=== PATIENT | male | born 1950 | race Caucasian/White ===

== ENCOUNTER → 2017-06-23 | Outpatient (CLI) | payer OTHER, BC ==
[~2017-06-23] MED LIST: AMLO-110 PO; CARB200T PO; CYAN500T13 PO; FAMOTIDINE PO; FERR1TAB23 PO; LOSARTAN PO; VITAMIN D3 PO
[2017-06-23 15:42] LABS: BASO ABS # 0.06 K/uL (0-0.2); EOS % 3.3 %; HEMATOCRIT 41.7 % (42-52); HEMOGLOBIN 14.3 g/dL (14.0-18.0); IG# 0.03 K/uL (0.00-0.02); LYMPH % 28.7 %; LYMPH ABS # 1.74 K/uL (1.2-3.4); MEAN CELL VOLUME 90.5 fL (80-100); MEAN CORPUSCULAR HGB CONC 34.3 g/dl (32-36); MEAN PLATELET VOLUME 9.6 fL (7.4-10.4); MONO % 15.2 %; MONO ABS # 0.92 K/uL (0.11-0.59); NEUT % 51.3 %; NEUT ABS # 3.12 K/uL (1.4-6.5); PLATELET COUNT 232 K/uL (130-400); RED CELL DISTRIBUTION WIDTH SD 46.3 fL (36.4-46.3); WHITE BLOOD COUNT 6.07 K/uL (4.8-10.8)
--- NOTE | 2017-06-23 15:47 | DIAGNOSTIC IMAGING REPORT ---
CHEST 2 VIEWS ROUTINE CLINICAL HISTORY: PRE-OP TESTING COMPARISON STUDY: No previous studies for comparison. FINDINGS: The cardiac and mediastinal contours are normal. There is no evidence of focal pulmonary consolidation. There is no evidence of failure. No pleural effusions are visualized.[ IMPRESSION: No active disease in the chest. Electronically signed by: Augustus Espinosa M.D. 06/23/2017 3:45 PM Dictated Date/Time: 06/23/2017 3:45 PM
[2017-06-23 16:11] LABS: PTT PATIENT 28.7 SECONDS (21.0-31.0)
[2017-06-23 16:25] LABS: ALBUMIN 3.7 gm/dl (3.4-5.0); BLOOD UREA NITROGEN 17 mg/dl (7-18); CALCIUM 8.7 mg/dl (8.5-10.1); CARBON DIOXIDE 26 mmol/L (21-32); CREATININE 1.68 mg/dl (0.60-1.40); GLUCOSE 95 mg/dl (70-99); POTASSIUM 4.1 mmol/L (3.5-5.1); SODIUM 138 mmol/L (136-145)
[2017-06-24 06:49] LABS: HEMOGLOBIN A1C 6.1 % (4.5-5.6)
== END | disposition home or self-care (01) ==
LOC: C.RAD 14:54
PROVIDERS: ATTEND Orthopaedic Surgery Sports Medicine
DX: Z01.811 Encounter for preprocedural respiratory examination (principal); Z01.812 Encounter for preprocedural laboratory examination

== ENCOUNTER 2017-06-30 06:49 | Inpatient (IN) | payer OTHER, BC ==
[2017-06-25 11:03] VITALS: BMI 41.0
--- NOTE | 2017-06-29 14:55 | HISTORY & PHYSICAL EXAMINATION ---
DATE OF ADMISSION: 06/30/2017 CHIEF COMPLAINT: Chronic left knee pain. HISTORY OF PRESENT ILLNESS: This is a 66-year-old male patient of Dr. March'viridiana complaining of chronic left knee pain, longstanding, now progressively getting worse. The patient has been diagnosed with end-stage osteoarthritis. The patient has failed conservative treatment including anti-inflammatories and the use of a sleeve. The patient has increased pain with weightbearing activities and his pain does interfere with his activities of daily living. PAST MEDICAL HISTORY: Sleep apnea with the use of CPAP, diabetes mellitus, rheumatoid arthritis, osteoarthritis, acid reflux, obesity, skin cancer, melanoma. SOCIAL HISTORY: Nonsmoker, nondrinker. PAST SURGICAL HISTORY: Both shoulder surgeries, gallbladder, gastric bypass, ankle-heel spurs, both knees and right index finger. FAMILY HISTORY: Noncontributory. REVIEW OF SYSTEMS: The patient complains of chronic left knee pain, otherwise denies any shortness of breath, chest pain, nausea, vomiting or other joint complaints. MEDICATIONS: Amlodipine 5 mg daily, carbamazepine 200 mg b.i.d., vitamin B12 500 mcg daily, iron 325 mg daily, liquid vitamin D3 5 mL per day, losartan unknown strength daily. ALLERGIES: No known drug allergies. PHYSICAL EXAMINATION: GENERAL: Well-developed, well-nourished 66-year-old male in no acute distress. He is alert and oriented x3 and pleasant. HEENT: Normocephalic, atraumatic. Extraocular motions were intact. Pupils were equal, reactive to light. HEART: Regular rate and rhythm, no murmurs appreciated. LUNGS: Clear. ABDOMEN: Soft and nontender. Bowel sounds present. EXTREMITIES: Left knee reveals range of motion of negative 5-135 and obesity. He has a varus alignment with 5/5 strength. NEUROLOGIC: Neurovascularly, he is intact in his left lower extremity. DIAGNOSES: Left knee end-stage osteoarthritis, sleep apnea with the use of CPAP, diabetes mellitus, osteoarthritis, rheumatoid arthritis, acid reflux, obesity, history of melanoma cancer. PLAN: The patient was advised of his diagnosis. Indications, risks, benefits, pros of course have all been reviewed. The patient was to proceed with a left total knee arthroplasty. Necessary consent forms, preoperative testing and clearances will be obtained.
[2017-06-30] VITALS (8 sets, daily range): BP systolic 107–145; BP diastolic 67–81; PULSE 51–91; TEMP 36.3–36.8; O2SAT 93–98; Ht 188 cm; Wt 145.4 kg
[~2017-06-30] VITALS: Ht 188 cm; Wt 145.4 kg
[~2017-06-30 06:49] MED LIST changes: +ACETAMINOPHEN 500 MG TAB PO SCH; +BUPIVACAINE 0.5 % 5 MG/1 ML PF 10ML VIAL ONE; +CEFAZOLIN 3000MG IV PUSH 22.5 ML IV SCH; +DEXAMETHASONE 4 MG TAB PO SCH; +FAMOTIDINE 20 MG TAB PO SCH; +GABAPENTIN 300 MG CAP PO SCH; +LACTATED RINGER'S 1000ML 1,000 ML IV SCH; +LACTATED RINGER'S 1000ML 500 ML IV SCH; +METOCLOPRAMIDE HCL 10 MG TAB PO SCH; +ROPIVACAINE 0.5% 5 MG/ML 30 ML VIAL ONE; +ROPIVACAINE 5MG/ML 30 ML 150 MG, BUPIVACAINE 0.5% MPF INJ 30 ML, EpINEphrine HCL INJ 0.... INFIL SCH
[2017-06-30] MEDS ORDERED: MIDAZOLAM HCL 1 MG/ML 2ML VIAL ONE ×4 (08:11→10:09)
[2017-06-30] MEDS ORDERED: FENTANYL CITRATE INJ 50 MCG/1 ML 2 ML VIAL ONE (08:11)
--- NOTE | 2017-06-30 09:20 | Anesthesiology Progress Note ---
Anesthesia Post Op Note Date & Time June 30, 2017 at 09:17 Vital Signs Pain Intensity: 0 Vital Signs Past 12 Hours Date Time Temp Pulse Resp B/P (MAP) Pulse Ox O2 Delivery O2 Flow Rate FiO2 06/30/17 07:15 36.8 62 20 145/76 98 Room Air
--- NOTE | 2017-06-30 09:55 | History & Physical Bridge Note ---
H&P Re-Evaluation Bridge Note: I have examined the patient, reviewed the History & Physical and in the interval since the performance of the History & Physical I have noted the following changes of clinical significance: No changes noted
[2017-06-30] MEDS: TRANEXAMIC ACID INJ 1,000 MG x 2 Bags IV SCH ×4 (10:05→14:33)
[2017-06-30] MEDS ORDERED: ORTHO JOINT ANESTHETIC ONE (10:15)
[2017-06-30] MEDS ORDERED: BACITRACIN 50000 UNIT VIAL ONE (10:15)
[2017-06-30] MEDS ORDERED: POVIDONE-IODINE OP SOLN 30 ML BTL ONE (10:15)
[2017-06-30] MEDS ORDERED: PROPOFOL IV EMULSION 10 MG/ML 20 ML VIAL ONE (11:37)
--- NOTE | 2017-06-30 12:50 | [facility] Post Operative Brief Note ---
Immediate Operative Summary Operative Date June 30, 2017. Pre-Operative Diagnosis Left knee end-stage osteoarthritis Post-Operative Diagnosis Left knee end-stage osteoarthritis Procedure(s) Performed Left Total Knee Arthroplasty Surgeon Dr. Cash March Unit Aide Tech Surgeon(s) Edward Dick PA-C Estimated Blood Loss 5 ml Findings Consistent with Post-Op Diagnosis Specimens a. left knee bone and tissue Drains 2 hemovac Anesthesia Type MAC Spinal Regional Complication(s) none
[2017-06-30] MEDS ORDERED: ZOLPIDEM TARTRATE 5 MG TAB PO PRN (13:00)
[2017-06-30] MEDS ORDERED: TRAMADOL HCL 50 MG TAB PO PRN (13:00)
[2017-06-30] MEDS ORDERED: CEFAZOLIN IV 3,000 MG in DEXTROSE 5% 50ML 50 ML IV SCH (13:00)
[2017-06-30] MEDS ORDERED: SOD PHOSPHATE/SOD BIPHOSPHATE ENEMA 132 ML BTL PR PRN (13:00)
[2017-06-30] MEDS ORDERED: MoRPHine SULFATE 4 MG/ML 1 ML CARP\\VIAL IV PRN (13:00)
[2017-06-30] MEDS ORDERED: METOCLOPRAMIDE HCL INJ 5 MG/ML 2 ML VIAL IV PRN (13:00)
[2017-06-30] MEDS ORDERED: MAGNESIUM HYDROXIDE SUSP 30 ML UDC PO PRN (13:00)
[2017-06-30] MEDS ORDERED: ONDANSETRON INJ 2 MG/ML 2 ML VIAL IV PRN (13:00)
--- NOTE | 2017-06-30 13:12 | [facility] Operative Report ---
Operative Report Operative Date June 30, 2017. Pre-Operative Diagnosis Left knee end-stage osteoarthritis Post-Operative Diagnosis Same, obesity 41.2 Procedure(s) Performed Left total knee replacement, increased difficulty due to size and weight BMI 41.[address] Cash March Monotypist Surgeon(s) Edward Dick PA-C Estimated Blood Loss 5 ml Findings Grade 4 medial compartment and patellofemoral DJD varus knee Specimens a. left knee bone and tissue Drains 2 hemovac Anesthesia Spinal sedation regional block and orthomix Complication(s) None Disposition Recovery Room / PACU Indications 66-year-old male with chronic bilateral knee osteoarthritis has extensive conservative management now failed conservative management. Radiographs demonstrate bilateral varus knees [id number] medial compartment with patellofemoral DJD left knee worse than right. Patient also has obesity BMI 41.2. Description of Procedure Patient taken to the operating room the size under spinal with sedation anesthesia. Patient was placed supine on the operating table. A pneumatic tourniquet was placed about the left upper thigh. The left lower extremity was prepped and draped in sterile fashion. Knee exam demonstrated he had an obese upper thigh moderately obese leg around the knee he had chronic lymphedema and scarred skin in the pretibial area consistent with chronic venous stasis disease. The leg was elevated exsanguinated with an Esmarch bandage and pneumatic tourniquet was raised to 350 millimeters of mercury. Skin incised sharply in longitudinal fashion. Subcutaneous flaps elevated. Incision was made through the medial retinaculum extending up in the mid third of the quadriceps tendon and down to the medial tibial tubercle. Intra-articular findings demonstrated tricompartmental DJD grade 4 patellofemoral and medial compartment DJD with tricompartmental osteophytes with a varus knee. The [employer] triathlon total knee arthroplasty system was used. To expose the knee the infrapatellar fat pad was resected. The meniscal remnants and cruciate ligaments were resected. The anterior fat pad over the femur in the area of the anterior flange of the femoral component was resected. Lateral synovial bands release. The femur was exposed. An intramedullary drill hole was made into the canal. A guidewire was placed. Distal femoral cutting guide was adjusted to resect a 5 degree valgus cut with 10 millimeters distal femur resected. The knee was extended and a subperiosteal peel lateral release was performed around the patella. Patella width was measured and width was reproduced using a freehand cut technique and a 36 patella component. The 3 drill holes were made and the excess lateral facet was beveled off to prevent any impingement. Attention was taken back to the femur which was exposed with retractors and the femoral sizing guide was pinned in position. The drill holes were placed in 3 of external rotation to match epicondylar axis. Femur sized for a 7 component. The 4-in-1 cutting block was placed and then the anterior posterior and chamfer cuts are made. The tibia was then subluxed. The external tibial cutting guide was just to make a perpendicular cut to the long axis of the tibia below the most deficient bone loss side. A [employer] merchand[employer] execution manager was used and the flexion extension gaps were balanced. All posterior osteophytes removed. All meniscal remnants were resected. The tibia exposed and the trial tibial component size 6 was externally rotated in line with the tibial tubercle and pinned in position. The punch for stem was used. The notch cutting device was centered appropriately and the femoral notch cut was made. The femoral trial was inserted. Trial tibial inserts were placed and size 11 gave balanced ligaments through flexion and extension. Patella tracking was assessed. The patella tracked centrally. The trial components were then removed and the orthomix anesthetic cocktail was injected per protocol. The knee was then copiously irrigated with pulsatile lavage antibiotic solution. Final components were then cemented with Simplex cement. Final components were 36 x 10 mm dome patella, 6 primary tibial baseplate, size 7 posterior stabilized left femoral component [employer]. While the cement cured the Betadine soak was used per protocol. After cement cured further pulsatile lavage irrigation performed and 2 Hemovac drains were brought out laterally. The quadriceps tendon and medial retinaculum were closed with figure of 8 #1 Vicryl sutures. The knee was taken through full range of motion and the repair was secure. The subcutaneous tisssues were closed with 2-0 Vicryl sutures. Skin was closed with nelida. Sterile dressings were applied. Patient procedure well. Edward MONACO was my physician instruction assistant principal who assisted in patient positioning prepping and draping,leg positioning ,soft tissue retraction and intrument management and participated in the closing and will participate in postoperative careof the patient. The patient tolerated the procedure well. I attest to the content of the Intraoperative Record and any orders documented therein. Any exceptions are noted below.
--- NOTE | 2017-06-30 13:47 | DIAGNOSTIC IMAGING REPORT ---
L KNEE 1 OR 2 VIEWS ROUTINE CLINICAL HISTORY: Left knee degenerative joint disease. Arthroplasty. COMPARISON: None FINDINGS: Alignment of the total left knee arthroplasty is anatomic. There is no fracture or unexpected radiopaque foreign body. Drains and skin nelida are present. IMPRESSION: Expected findings following total left knee arthroplasty. Electronically signed by: Doc Camp M.D. 06/30/2017 1:46 PM Dictated Date/Time: 06/30/2017 1:45 PM
[2017-06-30] MEDS: ACETAMINOPHEN 500 MG TAB PO SCH ×2 (15:25→21:52)
[2017-06-30] MEDS: D5W AND 1/2NSS + 20MEQ KCL 1,000 ML IV SCH (15:25)
--- NOTE | 2017-06-30 16:50 | INTERNAL MEDICINE CONSULTATION ---
DATE OF ADMISSION: 06/30/2017 This is a consultation H&P, 25 minutes. Physician requesting for the consultation is Dr. March. REASON FOR CONSULTATION: Postop medical management. HISTORY OF PRESENT ILLNESS: The patient is a 66-year-old white male with a significant past medical history of hypertension, diabetes, sleep apnea, on CPAP machine, rheumatoid arthritis, osteoarthritis, GERD, obesity, skin cancer, melanoma, was admitted to Dr. March's service because of chronic left knee pain. Left knee pain was longstanding, is progressively getting worse, which was end- stage osteoarthritis. He failed conservative outpatient treatment. The patient had left total knee done today. He is doing well. When I interviewed with him, he was awake, alert, and oriented, without any pain. Denied fever or chills. Denied chest pain, palpitation, lower extremity swelling. Denied cough, sputum, shortness of breath, or wheezing. Denied nausea, vomiting, abdominal pain, diarrhea, or constipation. Denied dysuria, urgency, or frequency. Denied facial droop, slurry speeches, or local weakness. Denied skin rashes. PAST MEDICAL HISTORY: Like I mentioned above includes obstructive sleep apnea, on CPAP machine, diabetes, rheumatoid arthritis, osteoarthritis, acid reflux, obesity, skin cancer, and melanoma. PAST SURGICAL HISTORY: Includes bilateral shoulder, gallbladder, gastric bypass, both knees, and right index finger. SOCIAL HISTORY: Denied tobacco abuse disorder, denied alcohol abuse disorder, denied illicit drug abuse. FAMILY HISTORY: Not contributory. REVIEW OF SYSTEMS: Please see HPI, otherwise 14 points organ system review negative. MEDICATIONS: Current medications include amlodipine 5 mg p.o. daily, carbamazepine 200 mg p.o. b.i.d., vitamin B12 of 500 mcg p.o. daily, iron pills 325 mg p.o. daily, vitamin D3 of 5 mL per day, losartan 5 mg p.o. daily. ALLERGIES: No known drug allergies. PHYSICAL EXAMINATION: VITAL SIGNS: Temperature 36.8, pulse 62, respiration rate 20, blood pressure 145/76, pulse oximetry was 96% on room air. GENERAL: The patient is a white male, awake, alert, oriented, conversational, follows all commands, in no acute distress. HEENT: Head is normocephalic. Eyes: Pupils equal, round, responsive to light. Ears are normal. Nose is normal. NECK: Supple. Thyroid: No enlargement. Trachea midline. CARDIOVASCULAR: Heart has regular rhythm. S1 and S2. RESPIRATORY: Lungs with decreased breathing sounds. There was no wheezing, rhonchi, or crackles. GASTROINTESTINAL: Abdomen is soft and nontender. Bowel sounds positive GENITOURINARY/RECTAL: Deferred. NEUROLOGIC: Cranial nerves II through XII are intact. There are no focal deficits. SKIN: No rashes. MUSCULOSKELETAL: Left knee in dressing. Limited range of motion. LABORATORY STUDIES: Recent labs include WBC 6, hemoglobin 14, platelets 332. PT/INR were 10 and 1. Sodium 138, potassium 4.1, BUN 17, creatinine 1.68, blood glucose 95. A1c 6.1. ASSESSMENT AND PLAN: A 66-year-old white male with conditions seen below. 1. Left knee osteoarthritis, status post left knee arthroplasty. PT/OT, pain management, DVT prophylaxis. Discharge plan will be per primary team. 2. History of diabetes, which was resolved after gastric bypass surgeries. Recent A1c was 6.1. Would not need to check HbA1c. Would not need to have any insulin coverage for now and advised him to follow up with his PCP. 3. Sleep apnea, on CPAP machine. Would advise family to bring CPAP machine. While he is in the hospital, we will continue CPAP machine when he is in sleep in hospitalization. 4. Hypertension. We will continue his home medications which include amlodipine and losartan. 5. The patient possibly has chronic kidney disease. His recent creatinine was 1.6. Will follow up. Thank you for the chance to be involved in the care. We will follow up. GABRIEL
[2017-06-30] MEDS ORDERED: INSULIN ASPART 100 UNITS/ML 3 ML PEN SC SCH (17:15)
[2017-06-30] MEDS: CEFAZOLIN IV 3,000 MG in SYRINGE 0 ML IV SCH (17:57)
[2017-06-30] MEDS ORDERED: CeleBREX 200 MG CAP PO SCH (21:00)
[2017-06-30] MEDS: FAMOTIDINE 20 MG TAB PO SCH (21:50)
[2017-06-30] MEDS: DOCUSATE SODIUM 100 MG CAP PO SCH (21:51)
[2017-07-01] MEDS: CEFAZOLIN IV 3,000 MG in SYRINGE 0 ML IV SCH (01:16)
[2017-07-01] MEDS: D5W AND 1/2NSS + 20MEQ KCL 1,000 ML IV SCH ×2 (01:16→11:01)
[2017-07-01 03:21] VITALS: BP 105/65; PULSE 54; TEMP 36.4; O2SAT 97
[2017-07-01] MEDS: RIVAROXABAN 10 MG TAB PO SCH (05:30)
[2017-07-01] MEDS: ACETAMINOPHEN 500 MG TAB PO SCH ×3 (05:30→21:33)
[2017-07-01 06:20] LABS: HEMATOCRIT 35.8 % (42-52); HEMOGLOBIN 12.3 g/dL (14.0-18.0); MEAN CELL VOLUME 89.3 fL (80-100); MEAN CORPUSCULAR HEMOGLOBIN 30.7 pg (25-34); MEAN CORPUSCULAR HGB CONC 34.4 g/dl (32-36); PLATELET COUNT 214 K/uL (130-400); RED CELL DISTRIBUTION WIDTH CV 14.1 % (11.5-14.5); RED CELL DISTRIBUTION WIDTH SD 46.1 fL (36.4-46.3); WHITE BLOOD COUNT 12.38 K/uL (4.8-10.8)
[2017-07-01 06:49] LABS: CALCIUM 8.2 mg/dl (8.5-10.1); CREATININE 1.82 mg/dl (0.60-1.40); POTASSIUM 4.2 mmol/L (3.5-5.1)
[2017-07-01 07:52] VITALS: BP 115/80; PULSE 59; TEMP 36.5; O2SAT 98
--- NOTE | 2017-07-01 08:17 | Orthopedic Progress Note ---
Orthopedic Progress Note Date of Service July 01, 2017. Subjective Post OP Day: 1 Reports: feeling well, pain controlled w PO medications, Denies: complaints, chest pain, SOB, nausea / vomiting, light headedness, calf pain Additional Notes: Cr 1.82 Objective calves soft nontender, N/V intact, capillary refill less than 2 sec., dressing C /D/I, A&O x3, toes mobile Date Time Temp Pulse Resp B/P (MAP) Pulse Ox O2 Delivery O2 Flow Rate FiO2 07/01/17 07:52 36.5 59 17 115/80 (92) 98 Room Air 07/01/17 03:21 36.4 54 17 105/65 (78) 97 CPAP 06/30/17 23:15 Room Air 06/30/17 23:10 36.4 54 17 123/69 (87) 96 Room Air 06/30/17 19:20 36.4 51 18 123/67 (85) 95 Room Air 06/30/17 17:00 36.6 66 16 107/70 (82) 93 Room Air 06/30/17 16:00 36.5 80 16 116/78 (91) 95 Room Air 06/30/17 14:55 36.3 91 18 131/81 (98) 96 Room Air 06/30/17 14:30 36.5 80 16 132/79 (96) 96 Room Air 06/30/17 14:00 Room Air 06/30/17 14:00 36.5 80 16 132/79 (96) 96 Room Air 06/30/17 14:00 Room Air 06/30/17 13:53 75 18 06/30/17 13:53 71 18 95 06/30/17 13:51 128/75 06/30/17 13:48 81 15 06/30/17 13:48 82 15 96 06/30/17 13:46 138/70 06/30/17 13:43 85 16 96 06/30/17 13:43 84 16 06/30/17 13:42 79 16 06/30/17 13:42 78 16 95 06/30/17 13:41 127/77 06/30/17 13:37 79 19 95 06/30/17 13:37 76 19 06/30/17 13:36 130/78 06/30/17 13:32 79 22 96 06/30/17 13:32 81 22 5/2/18 13:31 137/80 06/30/17 13:27 81 20 06/30/17 13:27 82 20 96 06/30/17 13:26 134/87 06/30/17 13:26 134/87 06/30/17 13:23 77 22 06/30/17 13:23 77 22 95 06/30/17 13:23 77 22 06/30/17 13:23 77 22 95 06/30/17 13:21 134/80 06/30/17 13:21 134/80 06/30/17 13:18 82 21 97 06/30/17 13:18 36.4 77 18 134/80 (93) 96 Oxymask 10 06/30/17 13:18 79 21 06/30/17 13:18 82 21 97 06/30/17 13:18 79 21 06/30/17 13:16 134/89 06/30/17 13:16 134/89 06/30/17 13:13 81 20 06/30/17 13:13 81 20 06/30/17 13:13 80 20 96 06/30/17 13:13 80 20 96 06/30/17 13:12 79 22 06/30/17 13:12 79 22 96 06/30/17 13:11 146/80 06/30/17 13:07 83 20 06/30/17 13:07 84 20 97 06/30/17 13:06 144/84 06/30/17 13:02 81 23 97 06/30/17 13:02 81 23 06/30/17 13:01 139/83 06/30/17 12:57 78 15 06/30/17 12:57 77 15 97 18 12:56 133/82 06/30/17 12:53 139/87 06/30/17 12:52 36.1 78 12 139/87 (95) 99 Oxymask 10 Laboratory Results 24 Hours: Test 07/01/17 05:58 Hematocrit 35.8 % Hemoglobin 12.3 g/dL Assessment & Plan Assessment: POD #1, Left TKA Plan: PT/ OT DVT proph- Xarelto D/C planning- Home w HH As per medicine Will D/C Celebrex- elevated Cr. Inhouse Planning Pain Management: Ultram, Morphine, PO Tylenol, Oxy IR DVT Prophylaxis: TEDs, SCDs, Xarelto Discharge Planning Discharge Planning: home with home health Pain Management: PO Tylenol, Oxy IR DVT Prophylaxis: Ilda Dardenrelto Therapy: Physical Therapy, Occupational Therapy
[2017-07-01] MEDS: CYANOCOBALAMIN 500 MCG TAB (VIT B-12) PO SCH (08:33)
[2017-07-01] MEDS: MULTIVITAMIN TAB PO SCH (08:33)
[2017-07-01] MEDS: PANTOprazole SOD 40 MG TAB PO SCH (08:33)
[2017-07-01] MEDS: DOCUSATE SODIUM 100 MG CAP PO SCH ×2 (08:33→21:32)
[2017-07-01] MEDS: CHOLECALCIFEROL 1000 INTER.UNIT TAB PO SCH (08:34)
[2017-07-01] MEDS: AMLODIPINE BESYLATE 5 MG TAB PO SCH (08:34)
[2017-07-01] MEDS: FERROUS SULFATE 325 MG TAB PO SCH (08:34)
[2017-07-01] MEDS: CARBAMAZEPINE 200 MG TAB PO SCH (08:34)
[2017-07-01] MEDS ORDERED: LOSARTAN POTASSIUM 25 MG TAB PO SCH (09:00)
--- NOTE | 2017-07-01 09:05 | Hospitalist Progress Note ---
Hospitalist Progress Note Date of Service July 01, 2017. (Teresa Jeff PA-C) Subjective Pt evaluation today including: conversation w/ patient, physical exam, chart review, lab review, review of studies Pain: None PO Intake: Good Voiding: no voiding problems The patient was seen and examined this morning. Pt reports doing well today. He was seen working with PT and doing straight leg raises while in a wheelchair. He denies any major discomfort and is tolerating it well. He has been tolerating diet well, no BM but passing gas. The patient tells me he had a cardiac cath completed the end of April this year in [place]. He underwent this due to EKG changes which showed possible blockage. His cardiac cath however was clean, and did not undergo stent placement. To his knowledge he did not need balloon angioplasty. 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 Constitutional: No fever, No chills, No sweats Eyes: No redness, No diplopia ENT: No nasal symptoms, No trouble swallowing Respiratory: No cough, No sputum, No shortness of breath Cardiovascular: No chest pain, No orthopnea, No palpitations Abdomen: No pain, No nausea, No vomiting, No diarrhea, No constipation Musculoskeletal: No joint pain, No muscle pain, No swelling Male : No dysuria Neurologic: No weakness, No numbness/tingling Psychiatric: No depression symptoms, No anxiety Endo: No fatigue Skin: No rash, No itch (Teresa Jeff PA-C) Objective Vital Signs Date Time Temp Pulse Resp B/P (MAP) Pulse Ox O2 Delivery O2 Flow Rate FiO2 07/01/17 07:52 36.5 59 17 115/80 (92) 98 Room Air 07/01/17 03:21 36.4 54 17 105/65 (78) 97 CPAP 06/30/17 23:15 Room Air 06/30/17 23:10 36.4 54 17 123/69 (87) 96 Room Air 06/30/17 19:20 36.4 51 18 123/67 (85) 95 Room Air 06/30/17 17:00 36.6 66 16 107/70 (82) 93 Room Air 06/30/17 16:00 36.5 80 16 116/78 (91) 95 Room Air 18 14:55 36.3 91 18 131/81 (98) 96 Room Air 18 14:30 36.5 80 16 132/79 (96) 96 Room Air 06/30/17 14:00 Room Air 18 14:00 36.5 80 16 132/79 (96) 96 Room Air 06/30/17 14:00 Room Air 06/30/17 13:53 75 18 06/30/17 13:53 71 18 95 06/30/17 13:51 128/75 06/30/17 13:48 81 15 06/30/17 13:48 82 15 96 06/30/17 13:46 138/70 06/30/17 13:43 85 16 96 06/30/17 13:43 84 16 06/30/17 13:42 79 16 06/30/17 13:42 78 16 95 06/30/17 13:41 127/77 06/30/17 13:37 79 19 95 06/30/17 13:37 76 19 06/30/17 13:36 130/78 06/30/17 13:32 79 22 96 06/30/17 13:32 81 22 06/30/17 13:31 137/80 06/30/17 13:27 81 20 06/30/17 13:27 82 20 96 06/30/17 13:26 134/87 06/30/17 13:26 134/87 06/30/17 13:23 77 22 /04/18 13:23 77 22 95 06/30/17 13:23 77 22 18 13:23 77 22 95 218 13:21 134/80 /218 13:21 134/80 18 13:18 82 21 97 /2/18 13:18 36.4 77 18 134/80 (93) 96 Oxymask 10 06/30/17 13:18 79 21 06/30/17 13:18 82 21 97 /2/18 13:18 79 21 /18 13:16 134/89 06/30/17 13:16 134/89 06/30/17 13:13 81 20 5218 13:13 81 20 18 13:13 80 20 96 06/30/17 13:13 80 20 96 06/30/17 13:12 79 22 06/30/17 13:12 79 22 96 06/30/17 13:11 146/80 06/30/17 13:07 83 20 06/30/17 13:07 84 20 97 06/30/17 13:06 144/84 06/30/17 13:02 81 23 97 06/30/17 13:02 81 23 06/30/17 13:01 139/83 06/30/17 12:57 78 15 06/30/17 12:57 77 15 97 06/30/17 12:56 133/82 06/30/17 12:53 139/87 06/30/17 12:52 36.1 78 12 139/87 (95) 99 Oxymask 10 (Teresa Jeff PA-C) Physical Exam General Appearance: WD/WN, no apparent distress, + obese (morbidly, BMI 41.2) Eyes: PERRL, EOMI ENT: hearing grossly normal, pharynx normal Neck: supple, no JVD Respiratory/Chest: lungs clear, no respiratory distress, no accessory muscle use Cardiovascular: no JVD, no murmur, + pertinent finding (slightly bradycardic with HR in 50s, regular rhythm) Abdomen: normal bowel sounds, non tender, soft Extremities: non-tender, no pedal edema, no calf tenderness Neurologic/Psychiatric: alert, normal mood/affect, oriented x 3 Skin: normal color, warm/dry (Teresa Jeff PA-C) Laboratory Results Last 24 Hours Test 06/30/17 12:55 07/01/17 05:58 Bedside Glucose 135 mg/dl White Blood Count 12.38 K/uL Red Blood Count 4.01 M/uL Hemoglobin 12.3 g/dL Hematocrit 35.8 % Mean Corpuscular Volume 89.3 fL Mean Corpuscular Hemoglobin 30.7 pg Mean Corpuscular Hemoglobin Concent 34.4 g/dl RDW Standard Deviation 46.1 fL RDW Coefficient of Variation 14.1 % Platelet Count 214 K/uL Mean Platelet Volume 10.0 fL Sodium Level 139 mmol/L Potassium Level 4.2 mmol/L Chloride Level 110 mmol/L Carbon Dioxide Level 23 mmol/L Anion Gap 6.0 mmol/L Blood Urea Nitrogen 18 mg/dl Creatinine 1.82 mg/dl Est Creatinine Clear Calc Drug Dose 59.9 ml/min Estimated GFR () 43.6 Estimated GFR (Non- 37.6 BUN/Creatinine Ratio 10.0 Random Glucose 174 mg/dl Calcium Level 8.2 mg/dl Magnesium Level 1.9 mg/dl Hepatitis C Antibody Screen NEG (Teresa Jeff PA-C) Assessment and Plan 66 yo M Left knee osteoarthritis, status post left knee arthroplasty. - pain management, bowel regimen and DVT prophylaxis with xarelto per primary team - PT/OT HTN Hx cardiac Cath - If any needs may need to request records from hospital in [place] -- Check an EKG as there is not one in our chart - Hr is slightly low in the 50s, however good BP - amlodipine and losartan continued DM II - Resolved after gastric bypass surgeries. Recent A1c was 6.1. - ISS with accuchecks achs Sleep apnea, on CPAP machine. W - stable CKD stage III - Cr increased to 1.8 compared to 1.6 yesterday. DVT ppx: xarelto CODE STATUS: FULL Dispostion: From home, lives with , discharge per primary team. (Teresa Jeff PA-C) Attending Attestation - Pt seen/examined, chart reviewed, care plan d/w CARLOS ENRIQUE Jeff. I agree w/ the roy components of her documentation. Pt w/o complaints of nausea, emesis, cp, dyspnea, abd pain. Left knee pain only w/ movement/walking. +flatus. VSS, elinor gen - nad, obese neck - no JVD heart - elinor, s1, s2 lungs - CTA b/l abd - soft ext - left knee in dressing; mild edema left ankle, none on right A/P: s/p left TKR - per ortho bradycardia - check TSH in am, r/o hypothyroidism HTN - controlled; cont outpatient meds elevated creatinine - CKD stage 2? repeat BMP kyung Dawn MD (Romeo Dawn MD)
[2017-07-01 11:31] VITALS: BP 100/64; PULSE 50; TEMP 36.5; O2SAT 97
[2017-07-01] MEDS: OXYCODONE HCL IR 5 MG TAB (IMMEDIATE RELEASE) PO PRN (12:04)
[2017-07-01 15:03] VITALS: BP 126/77; PULSE 47; TEMP 36.4; O2SAT 98
[2017-07-01] MEDS: FAMOTIDINE 20 MG TAB PO SCH (21:32)
[2017-07-01 23:14] VITALS: BP 103/65; PULSE 47; TEMP 36.4; O2SAT 98
[2017-07-02] MEDS: OXYCODONE HCL IR 5 MG TAB (IMMEDIATE RELEASE) PO PRN ×3 (03:58→12:06)
[2017-07-02] MEDS: RIVAROXABAN 10 MG TAB PO SCH (05:33)
[2017-07-02] MEDS: ACETAMINOPHEN 500 MG TAB PO SCH (05:33)
[2017-07-02 06:26] LABS: HEMATOCRIT 32.5 % (42-52); HEMOGLOBIN 10.9 g/dL (14.0-18.0); MEAN CELL VOLUME 90.3 fL (80-100); MEAN CORPUSCULAR HEMOGLOBIN 30.3 pg (25-34); MEAN CORPUSCULAR HGB CONC 33.5 g/dl (32-36); MEAN PLATELET VOLUME 9.6 fL (7.4-10.4); PLATELET COUNT 180 K/uL (130-400); RED CELL DISTRIBUTION WIDTH CV 14.5 % (11.5-14.5); RED CELL DISTRIBUTION WIDTH SD 48.2 fL (36.4-46.3); WHITE BLOOD COUNT 7.76 K/uL (4.8-10.8)
[2017-07-02 06:32] VITALS: BP 93/58; PULSE 61; TEMP 36.8; O2SAT 96
[2017-07-02 07:03] LABS: CREATININE 1.73 mg/dl (0.60-1.40)
[2017-07-02] MEDS: DOCUSATE SODIUM 100 MG CAP PO SCH (07:28)
[2017-07-02] MEDS: CYANOCOBALAMIN 500 MCG TAB (VIT B-12) PO SCH (07:28)
[2017-07-02] MEDS: AMLODIPINE BESYLATE 5 MG TAB PO SCH (07:29)
[2017-07-02] MEDS: CARBAMAZEPINE 200 MG TAB PO SCH (07:29)
--- NOTE | 2017-07-02 07:48 | Orthopedic Progress Note ---
Orthopedic Progress Note Date of Service July 02, 2017. Subjective Post OP Day: 2 Reports: feeling well, pain controlled w PO medications, Denies: complaints, chest pain, SOB, nausea / vomiting, light headedness, calf pain Additional Notes: BP somewhat low, Cr improved Objective calves soft nontender, N/V intact, capillary refill less than 2 sec., dressing C /D/I, A&O x3, toes mobile Date Time Temp Pulse Resp B/P (MAP) Pulse Ox O2 Delivery O2 Flow Rate FiO2 07/02/17 06:32 36.8 61 16 93/58 (70) 96 Room Air 07/01/17 23:14 36.4 47 16 103/65 (78) 98 CPAP 07/01/17 22:15 CPAP 07/01/17 15:30 Room Air 07/01/17 15:03 36.4 47 18 126/77 (93) 98 Room Air 07/01/17 11:31 36.5 50 16 100/64 (76) 97 Room Air 07/01/17 07:52 36.5 59 17 115/80 (92) 98 Room Air Laboratory Results 24 Hours: Test 07/02/17 05:52 Hematocrit 32.5 % Hemoglobin 10.9 g/dL Assessment & Plan Assessment: POD #2, Left TKA Plan: PT/ OT DVT proph- Xarelto D/C planning- Home w HH today if okay w medicine. As per medicine Inhouse Planning Pain Management: Ultram, Morphine, PO Tylenol, Oxy IR DVT Prophylaxis: TEDs, SCDs, Xarelto Discharge Planning Discharge Planning: home with home health Pain Management: PO Tylenol, Oxy IR DVT Prophylaxis: TEDs, Xarelto Therapy: Physical Therapy, Occupational Therapy
[2017-07-02] MEDS ORDERED: XRL10 PO (07:50)
[2017-07-02] MEDS ORDERED: ACET-24 PO (07:50)
[2017-07-02] MEDS ORDERED: RXC5 PO (07:50)
--- NOTE | 2017-07-02 07:52 | Discharge Instructions ---
Discharge Instructions Date of Service July 02, 2017. Admission Reason for Admission: Left Knee Degenerative Joint Disease Discharge Discharge Diagnosis / Problem: Left TKA Discharge Goals Goal(s): Improve function Activity Recommendations Activity Limitations: as noted below . Instructions / Follow-Up Instructions / Follow-Up ACTIVITY RECOMMENDATIONS: SELF CARE INSTRUCTIONS AFTER TOTAL KNEE REPLACEMENT A. You may need to continue a physical therapy program after discharge from the hospital. There are several options available to you. Your doctor will assist you in selecting the best one for you. 1. An out-patient facility 2 to 3 times a week for therapy or home therapy. 2. Continue working on all exercises taught to you in the hospital. Your goals should be to increase bending of your knee to 90 degrees and beyond and to fully straighten your knee. B. You may progress at your own pace from walking with a walker or crutches to a cane; then to no assistive devices. C. Make walking a part of your daily routine. Be up as much as comfortable with rest periods throughout the day. Rest with leg elevation is very important. Use the ice wrap frequently for the first 3-4 weeks. D. There are no restrictions on activities. You may ride in a car, shop, participate in corporate strategy associate and all social activities. E. Wear the long elastic stockings (VELASQUEZ hose) 20 hours a day for 2 weeks after surgery. They can be removed several times a day for laundering and for a bath. F. You may shower, no tub baths until cleared by your doctor. SPECIAL CARE INSTRUCTIONS: VERY IMPORTANT TO READ AND REVIEW A. There are a few signs you need to watch for after you are home. Call [facility] if you notice any of the followin. Increased severe knee pain. Some pain is expected especially when you exercise. 2. Increased swelling in your leg or knee; pain or swelling of the calf muscle in either lower leg. 3. Any fluid drainage from the incision. 4. Shortness of breath or chest pain. B. Please call [facility] at if you have any concerns or questions about your operation or recovery. The doctor or his nurse will return your call promptly. C. You must take antibiotics before dental work, bladder, bowel or other surgery. Your doctor will provide you with a permanent care to carry describing this precaution. IMPORTANT: * REMEMBER TO TAKE ASPIRIN, 81 MG, TWICE DAILY FOR 4 WEEKS UNLESS OTHERWISE DIRECTED. THIS IS YOUR BLOOD THINNER. * HIGH RISK PATIENTS MAY BE PRESCRIBED A STRONGER BLOOD THINNER. THIS WILL BE PROVIDED AT DISCHARGE. * CALL IF INCREASED PAIN, REDNESS, DRAINAGE OR FEVER GREATER THAT 101. * WEAR VELASQUEZ HOSE 20 HOURS PER DAY FOR 2 WEEKS. * YOU MAY HAVE A LARGE BAND-AID LIKE DRESSING (SILVERON). THIS WILL REMAIN ON YOUR INCISION FOR 7 DAYS, THEN CAN BE REMOVED. IF INCISION IS LEAKING THROUGH DRESSING, CALL THE OFFICE . FOLLOW UP VISIT: If appointment is not already scheduled: Please call [facility] to make a follow-up appointment for 2 weeks after your surgery at . FOLLOW UP WITH YOUR DOCTOR NEXT WEEK CONCERNING ANY BLOOD PRESSURE MEDICATION ADJUSTMENTS AND RENAL FUNCTION. Current Hospital Diet Patient's current hospital diet: Regular Diet Discharge Diet Recommended Diet: Regular Diet Procedures Procedures Performed: Left Total Knee Arthroplasty Pending Studies Studies pending at discharge: no Laboratory Results Hemoglobin A1c Test 06/23/17 15:13 Range/Units Estimated Average Glucose 128 mg/dl Hemoglobin A1c 6.1 H 4.5-5.6 % Medical Emergencies . Who to Call and When: Medical Emergencies: If at any time you feel your situation is an emergency, please call [phone] immediately. . Non-Emergent Contact Non-Emergency issues call your: Primary Care Provider . "Provider Documentation" section prepared by Edward Dick. .
[2017-07-02] MEDS: PANTOprazole SOD 40 MG TAB PO SCH (10:02)
[2017-07-02] MEDS: MULTIVITAMIN TAB PO SCH (10:02)
[2017-07-02] MEDS: FERROUS SULFATE 325 MG TAB PO SCH (10:02)
[2017-07-02] MEDS: CHOLECALCIFEROL 1000 INTER.UNIT TAB PO SCH (10:02)
--- NOTE | 2017-07-02 11:54 | Hospitalist Progress Note ---
Hospitalist Progress Note Date of Service July 02, 2017. (Teresa Jeff PA-C) Subjective Pt evaluation today including: conversation w/ patient, physical exam, chart review, lab review, review of studies Pain: Moderate L knee PO Intake: Good Voiding: no voiding problems The patient was seen and examined this morning. Pt reports doing well today, he has slight soreness around site where tourniquet was applied to his leg during surgery, and moderate incisional pain. He has been ambulating with the walker and is tolerating this well. Pt denies fever, chills, sweats. BM last night. + flatus. is transferring him home today. Constitutional: No fever, No chills, No sweats, No fatigue Eyes: No redness ENT: No nasal symptoms, No trouble swallowing Respiratory: No cough, No wheezing, No shortness of breath Cardiovascular: No chest pain, No palpitations Abdomen: No pain, No nausea, No vomiting, No diarrhea, No constipation Musculoskeletal: + see HPI Male : No dysuria Neurologic: No weakness, No numbness/tingling Endo: No fatigue Skin: No rash, No itch (Teresa Jeff PA-C) Objective Vital Signs Date Time Temp Pulse Resp B/P (MAP) Pulse Ox O2 Delivery O2 Flow Rate FiO2 07/02/17 07:25 Room Air 07/02/17 06:32 36.8 61 16 93/58 (70) 96 Room Air 07/01/17 23:14 36.4 47 16 103/65 (78) 98 CPAP 07/01/17 22:15 CPAP 07/01/17 15:30 Room Air 07/01/17 15:03 36.4 47 18 126/77 (93) 98 Room Air (Teresa Jeff PA-C) Physical Exam General Appearance: WD/WN, no apparent distress, + obese Eyes: PERRL, EOMI ENT: hearing grossly normal, pharynx normal Neck: supple, no JVD Respiratory/Chest: lungs clear, no respiratory distress, no accessory muscle use Cardiovascular: no murmur, + bradycardia Abdomen: normal bowel sounds, non tender, soft Extremities: non-tender, + pedal edema (faint edema in LLE. ), + pertinent finding (L knee dressing c/d/i, drain removed. +developing ecchymosis circumferentially around left mid thigh.) Neurologic/Psychiatric: alert, normal mood/affect, oriented x 3 Skin: normal color, warm/dry (Teresa Jeff PA-C) Laboratory Results Last 24 Hours Test 07/02/17 05:52 White Blood Count 7.76 K/uL Red Blood Count 3.60 M/uL Hemoglobin 10.9 g/dL Hematocrit 32.5 % Mean Corpuscular Volume 90.3 fL Mean Corpuscular Hemoglobin 30.3 pg Mean Corpuscular Hemoglobin Concent 33.5 g/dl RDW Standard Deviation 48.2 fL RDW Coefficient of Variation 14.5 % Platelet Count 180 K/uL Mean Platelet Volume 9.6 fL Sodium Level 140 mmol/L Potassium Level 4.0 mmol/L Chloride Level 110 mmol/L Carbon Dioxide Level 25 mmol/L Anion Gap 5.0 mmol/L Blood Urea Nitrogen 20 mg/dl Creatinine 1.73 mg/dl Est Creatinine Clear Calc Drug Dose 63.0 ml/min Estimated GFR () 46.3 Estimated GFR (Non- 40.0 BUN/Creatinine Ratio 11.3 Random Glucose 109 mg/dl Calcium Level 8.0 mg/dl Thyroid Stimulating Hormone (TSH) 3.970 uIu/ml (Teresa Jeff PA-C) Assessment and Plan 66 yo M Left knee osteoarthritis, status post left knee arthroplasty. - pain management, bowel regimen and DVT prophylaxis with xarelto per primary team - PT/OT on board HTN Hx cardiac Cath - If any needs may need to request records from [facility] in [place] -- EKG reviewed showing sinus bradycardia, no signs of ischemia. No cardiac sx. - Hr bradycardic with HR =48-50s, however good BP. He denies any lightheadedness or dizziness. 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 Recent A1c was 6.1. - ISS with accuchecks achs Sleep apnea, on CPAP machine. - stable CKD stage III - Cr 1.73- overall improved. DVT ppx: xarelto CODE STATUS: FULL Dispostion: From home, lives with , discharge per primary team today. (Teresa Jeff PA-C) Attending Attestation - Pt seen/examined, chart reviewed, care plan d/w CARLOS ENRIQUE Jeff. I agree w/ the roy components of her documentation. +flatus & stools. no dyspnea no abd pain no chest pain had low BP this am while in bed, but denies any dizziness VSS, elinor gen - nad, obese neck - no JVD heart - elinor, s1, s2 lungs - CTA b/l abd - soft ext - left knee dressing intact, mild edema left leg A/P: s/p left TKR - per ortho bradycardia - likely physiologic; he is not on beta demarco and TSH is wnl; EKG without AV block or other abnormalities HTN - controlled; I personally repeated his BP during my AM visit today - systolic BP was 144 reasonable to hold both BP meds today and resume these tomorrow at home elevated creatinine - CKD stage 2 - this appears to be his baseline ok from medical standpoint to d/c home today Quinten Dawn MD (Romeo Dawn MD)
[2017-07-02 12:17] VITALS: BP 93/58; PULSE 61; TEMP 36.8; O2SAT 96
== END 2017-07-02 13:01 | disposition home health service (06) | DRG 470 ==
LOC: C.ACU 06:49 → C.3E 09:57 → ENRESERV 13:09
PROVIDERS: ADMIT Orthopaedic Surgery Sports Medicine; ATTEND Orthopaedic Surgery Sports Medicine
PROC: 0SRD0J9 Replacement of Left Knee Joint with Synthetic Substitute, Cemented, Open Approach (ICD-10-PCS; principal; 2017-06-30 09:45)
DX: M17.12 Unilateral primary osteoarthritis, left knee (principal); E66.9 Obesity, unspecified; Z68.41 Body mass index [BMI] 40.0-44.9, adult; I12.9 Hypertensive chronic kidney disease with stage 1 through stage 4 chronic kidney disease, or unspecified chronic kidney disease; N18.2 Chronic kidney disease, stage 2 (mild); G47.33 Obstructive sleep apnea (adult) (pediatric); K21.9 Gastro-esophageal reflux disease without esophagitis; R00.1 Bradycardia, unspecified; Z79.899 Other long term (current) drug therapy

== ENCOUNTER 2017-07-16 10:27 | Emergency (ER) | payer OTHER, BC ==
[~2017-07-16] VITALS: Ht 188 cm; Wt 147.0 kg
[~2017-07-16 10:27] MED LIST changes: +ACET-24 PO; -ACETAMINOPHEN 500 MG TAB PO SCH; -BUPIVACAINE 0.5 % 5 MG/1 ML PF 10ML VIAL ONE; -CEFAZOLIN 3000MG IV PUSH 22.5 ML IV SCH; -DEXAMETHASONE 4 MG TAB PO SCH; -FAMOTIDINE 20 MG TAB PO SCH; -GABAPENTIN 300 MG CAP PO SCH; -LACTATED RINGER'S 1000ML 1,000 ML IV SCH; -LACTATED RINGER'S 1000ML 500 ML IV SCH; -METOCLOPRAMIDE HCL 10 MG TAB PO SCH; -ROPIVACAINE 0.5% 5 MG/ML 30 ML VIAL ONE; -ROPIVACAINE 5MG/ML 30 ML 150 MG, BUPIVACAINE 0.5% MPF INJ 30 ML, EpINEphrine HCL INJ 0.... INFIL SCH; +RXC5 PO; +XRL10 PO
[2017-07-16 10:35] VITALS: Ht 188 cm; Wt 147.0 kg
[2017-07-16] MEDS ORDERED: ONDANSETRON INJ 2 MG/ML 2 ML VIAL IV STA (10:45)
[2017-07-16] MEDS ORDERED: SODIUM CHLORIDE 0.9% 1000ML 1,000 ML IV STA (10:45)
--- NOTE | 2017-07-16 10:51 | EMERGENCY ROOM VISIT NOTE ---
History Report prepared by Seamus: Foster Harris Under the Supervision of: Dr. Juventino Rodriguez M.D. First contact with patient: 10:39 Chief Complaint: SYNCOPE Stated Complaint: SYNCOPE Nursing Triage Summary: PT HERE WITH SYNCOPAL EVENT WHILE AT ORTHOPEDICS OFFICE, WHILE GETTING SUTURES REMOVED IN LEFT KNEE POST KNEE REPLACEMENT. PT STATES RECALLS HIS FACE FELT FUNNY. HE WAS SITTING IN A CHAIR AND STAFF PUT HIM IN A LITTER. PT DENIES ANY RECENT ILLNESS, NO SOB, NO PAIN. History of Present Illness The patient is a 66 year old male who presents to the Emergency Room with complaints of an episode of syncope occurring this morning. The patient states that he was in his orthopedics office today and was having nelida removed from his left knee following a left knee replacement done sixteen days ago. He notes that while he was having the nelida removed, he lost consciousness completely. He reports that he is currently "feeling funny in the head." The patient states that he was sitting when the episode occurred and was helped to the floor by staff. He notes that he did not hit his head. He also complains of intermittent nausea. He denies any headache, dizziness, fever, cough, sob, congestion, and diarrhea. He reports that he has a history of hypertension and neuropathy in his legs. The patient states that he was taking Xarelto after his surgery, but does not take it anymore. Source of History: patient Onset: this morning Position: head Quality: other (syncope) Timing: other (an episode) Associated Symptoms: + LOC, + nausea, No fevers, No headache, No cough, No SOB, No diarrhea Note: The patient also denies any dizziness and congestion. Review of Systems See HPI for pertinent positives and negatives. A total of ten systems were reviewed and were otherwise negative. Past Medical & Surgical Medical Problems: (1) Hypertension (2) Left knee DJD (3) Neuropathy Surgical Problems: (1) History of left knee surgery Family History No pertinent family history stated. Social History Smoking Status: Never Smoker Marital Status: Housing Status: lives with family Occupation Status: retired Current/Historical Medications Scheduled Acetaminophen (Sb Non-Aspirin Extra Stre), 1,000 MG PO Q8 Amlodipine (Norvasc), 5 MG PO QAM Carbamazepine (Tegretol), 200 MG PO QAM Cyanocobalamin (Vitamin B12 500MCG), 500 MCG PO QAM Ferrous Sulfate (Iron), 325 MG PO QAM [Losartan ], 5 MG PO QAM [Vitamin D3], 5,000 UNITS PO QAM Scheduled PRN Tramadol (Ultram), 50 MG PO Q8H PRN for Pain Allergies Coded Allergies: No Known Allergies (Verified , 07/16/17) Physical Exam Vital Signs Date Time Temp Pulse Resp B/P (MAP) Pulse Ox O2 Delivery O2 Flow Rate FiO2 07/16/17 15:04 36.7 63 20 137/82 95 07/16/17 14:50 63 20 137/82 95 Room Air 07/16/17 14:19 144/88 07/16/17 14:06 63 95 Room Air 07/16/17 14:01 129/85 07/16/17 13:36 64 94 Room Air 07/16/17 13:31 130/79 07/16/17 13:16 59 07/16/17 13:06 55 95 Room Air 07/16/17 13:01 112/69 07/16/17 12:51 61 97 Room Air 07/16/17 12:46 60 95 Room Air 07/16/17 12:31 136/74 07/16/17 12:16 63 95 Room Air 07/16/17 12:11 65 95 Room Air 07/16/17 12:05 117/73 07/16/17 11:36 123/71 07/16/17 11:35 117/66 07/16/17 11:34 63 20 117/66 95 Room Air 63 123/71 07/16/17 11:34 96 Room Air 07/16/17 11:27 57 15 95 Room Air 07/16/17 11:20 56 20 100/63 97 Room Air 07/16/17 11:17 100/63 07/16/17 10:57 55 12 96 Room Air 07/16/17 10:43 57 07/16/17 10:35 36.7 58 20 143/88 92 Room Air 07/16/17 10:33 143/88 Physical Exam GENERAL: Awake, alert, fatigued appearing, in no distress HENT: Normocephalic, atraumatic. Oropharynx unremarkable. Mucous membranes dry. EYES: Normal conjunctiva. Sclera non-icteric. NECK: Supple. No nuchal rigidity. FROM. No JVD. RESPIRATORY: Clear to auscultation. CARDIAC: Regular rate, normal rhythm. Extremities warm and well perfused. Pulses equal. ABDOMEN: Soft, non-distended. No tenderness to palpation. No rebound or guarding. No masses. RECTAL: Deferred. MUSCULOSKELETAL: Chest examination reveals no tenderness. The back is symmetrical on inspection without obvious abnormality. There is no CVA tenderness to palpation. No joint edema. LOWER EXTREMITIES: Calves are equal size bilaterally and non-tender. No edema. No discoloration. NEURO: Normal sensorium. No sensory or motor deficits noted. Normal cerebellar function with [id number], alternating palms. SKIN: No rash or jaundice noted. Medical Decision & Procedures ER Provider Diagnostic Interpretation: Radiology results as stated below per my review and radiologist interpretation: HEAD CT NONCONTRAST Findings: The paranasal sinuses and mastoid air cells are clear. The calvarium and skull base are intact. The ventricles and sulci are within normal limits. There is no mass, hematoma, midline shift, or acute infarct. A few small patchy areas of hypodensity within the white matter. These are nonspecific but favor mild microvascular ischemic change. Impression: No acute intracranial abnormality. A few small patchy areas of hypodensity within the white matter are nonspecific but favor mild microvascular ischemic change. Electronically signed by: Chi Moses M.D. 07/16/2017 12:02 PM CHEST ONE VIEW PORTABLE FINDINGS: Cardiomediastinal and hilar silhouettes are within normal limits. No pneumothorax, pleural effusion, focal airspace consolidation or overt pulmonary edema. Postoperative changes about the left humeral head. Degenerative changes of the shoulders and spine. IMPRESSION: No acute process. The above report was generated using voice recognition software. It may contain grammatical, syntax or spelling errors. Electronically signed by: Eliezer Murphy M.D. 07/16/2017 11:10 AM Laboratory Results 07/16/17 11:15 Red Blood Count 3.90, Mean Corpuscular Volume 91.8, Mean Corpuscular Hemoglobin 30.8, Mean Corpuscular Hemoglobin Concent 33.5, Mean Platelet Volume 8.8, Neutrophils (%) (Auto) 65.0, Lymphocytes (%) (Auto) 22.2, Monocytes (%) (Auto) 10.2, Eosinophils (%) (Auto) 2.1, Basophils (%) (Auto) 0.4, Neutrophils # (Auto ) 4.89, Lymphocytes # (Auto) 1.67, Monocytes # (Auto) 0.77, Eosinophils # (Auto ) 0.16, Basophils # (Auto) 0.03 07/16/17 11:15 Test 07/16/17 11:15 07/16/17 14:20 White Blood Count 7.53 K/uL (4.8-10.8) Red Blood Count 3.90 M/uL (4.7-6.1) Hemoglobin 12.0 g/dL (14.0-18.0) Hematocrit 35.8 % (42-52) Mean Corpuscular Volume 91.8 fL (80-100) Mean Corpuscular Hemoglobin 30.8 pg (25-34) Mean Corpuscular Hemoglobin Concent 33.5 g/dl (32-36) Platelet Count 287 K/uL (130-400) Mean Platelet Volume 8.8 fL (7.4-10.4) Neutrophils (%) (Auto) 65.0 % Lymphocytes (%) (Auto) 22.2 % Monocytes (%) (Auto) 10.2 % Eosinophils (%) (Auto) 2.1 % Basophils (%) (Auto) 0.4 % Neutrophils # (Auto) 4.89 K/uL (1.4-6.5) Lymphocytes # (Auto) 1.67 K/uL (1.2-3.4) Monocytes # (Auto) 0.77 K/uL (0.11-0.59) Eosinophils # (Auto) 0.16 K/uL (0-0.5) Basophils # (Auto) 0.03 K/uL (0-0.2) RDW Standard Deviation 45.4 fL (36.4-46.3) RDW Coefficient of Variation 13.7 % (11.5-14.5) Immature Granulocyte % (Auto) 0.1 % Immature Granulocyte # (Auto) 0.01 K/uL (0.00-0.02) Anion Gap 7.0 mmol/L (3-11) Est Creatinine Clear Calc Drug Dose 63.0 ml/min Estimated GFR () 46.0 Estimated GFR (Non- 39.7 BUN/Creatinine Ratio 10.9 (10-20) Bedside Glucose 132 mg/dl (70-99) Calcium Level 8.5 mg/dl (8.5-10.1) Magnesium Level 2.4 mg/dl (1.8-2.4) Total Bilirubin 0.4 mg/dl (0.2-1) Direct Bilirubin 0.2 mg/dl (0-0.2) Aspartate Amino Transf (AST/SGOT) 22 U/L (15-37) Alanine Aminotransferase (ALT/SGPT) 23 U/L (12-78) Alkaline Phosphatase 104 U/L (45-117) Troponin I < 0.015 ng/ml (0-0.045) Total Protein 6.9 gm/dl (6.4-8.2) Albumin 3.5 gm/dl (3.4-5.0) Thyroid Stimulating Hormone (TSH) 3.330 uIu/ml (0.300-4.500) Urine Color YELLOW Urine Appearance CLEAR (CLEAR) Urine pH 7.0 (4.5-7.5) Urine Specific [place] 1.013 (1.000-1.030) Urine Protein NEG (NEG) Urine Glucose (UA) NEG (NEG) Urine Ketones NEG (NEG) Urine Occult Blood NEG (NEG) Urine Nitrite NEG (NEG) Urine Bilirubin NEG (NEG) Urine Urobilinogen NEG (NEG) Urine Leukocyte Esterase NEG (NEG) Laboratory results reviewed by me Medications Administered Medications (Trade) Dose Ordered Sig/María Route Start Time Stop Time Status Last Admin Dose Admin Sodium Chloride 1,000 ml @ 999 mls/hr Q1H1M STAT IV 07/16/17 10:45 07/16/17 11:45 DC 07/16/17 11:27 999 MLS/HR Ondansetron HCl (Zofran Inj) 4 mg NOW STAT IV 07/16/17 10:45 07/16/17 10:51 DC 07/16/17 11:34 4 MG ECG Per My Interpretation Indication: syncope Rate (beats per minute): 54 Rhythm: sinus bradycardia Findings: no acute ischemic change, other (Normal axis) ED Course 1045: The patient was evaluated in room C6. A complete history and physical exam was performed. 1325: I reevaluated and updated the patient. He is feeling better. 1425: I reevaluated the patient. He ambulated without difficulty. Discussed results and discharge instructions: He verbalized understanding and agreement. The patient is ready for discharge. Medical Decision I reviewed the patient's past medical history, medications, and the nursing notes as described above. Differential diagnosis: Etiologies such as vasovagal event, infection, hypoglycemia, electrolyte abnormalities, cardiac sources, intracerebral event, toxicologic, neurologic, as well as others were entertained. The patient is a 66-year-old gentleman who is status post left knee replacement who presents emergency department from the orthopedic office after having a syncopal episode when having nelida removed per hpi. On arrival the patient is fatigued appearing but no acute distress, afebrile stable vital signs. Patient does appear clinically dry. Neuro intact including finger to nose and alternating palms. The orthostatics were attempted however the patient became lightheaded upon sitting up, with drop in blood pressure to systolic of 100s. Moreover, when IV was being placed the patient again felt lightheaded. Otherwise EKG is unremarkable. Chest x-ray and CT head negative. Creatinine 1.7 at baseline. Patient feeling improved after IV fluid hydration and ambulating without difficulty. Given positive orthostatic evaluation as well as witnessed vasovagal response here in the ED symptoms most likely related to vasovagal episode exacerbated by patient's mild dehydration. Findings and plan for follow-up reviewed with patient. Patient agreeable and d/c'd per discharge instructions. Medication Reconcilliation Current Medication List: was personally reviewed by me Blood Pressure Screening Patient's blood pressure: Elevated blood pressure Blood pressure disposition: Elevated BP felt to be situational Impression Primary Impression: Vasovagal syncope Additional Impression: Dehydration Scribe Attestation The scribe's documentation has been prepared under my direction and personally reviewed by me in its entirety. I confirm that the note above accurately reflects all work, treatment, procedures, and medical decision making performed by me. Departure Information Dispostion Home / Self-Care Referrals No Doctor, Assigned (PCP) Forms HOME CARE DOCUMENTATION FORM, IMPORTANT VISIT INFORMATION Patient Instructions ED Dehydration, ED Syncope Vasovagal, My [facility] Additional Instructions Please follow up with your primary care physician in the next week for re- evaluation and to repeat your kidney function. Your episode today is most likely due to mild dehydration in the setting of having a vagal response to painful stimulus. Otherwise, your exam, EKG, chest xray, lab results, and CT scan of your brain did not show signs of an emergent condition at this time. Drink plenty of fluids to ensure hydration. Return to the emergency department for worsening symptoms as described in the accompanying instructions. Problem Qualifiers
--- NOTE | 2017-07-16 11:11 | DIAGNOSTIC IMAGING REPORT ---
CHEST ONE VIEW PORTABLE HISTORY: 66 years-old Male EVALUATE ALTERED MENTAL STATUS/WEAKNESS acute weakness with altered mental status COMPARISON: Chest radiograph 06/23/2017 TECHNIQUE: Portable AP view of the chest FINDINGS: Cardiomediastinal and hilar silhouettes are within normal limits. No pneumothorax, pleural effusion, focal airspace consolidation or overt pulmonary edema. Postoperative changes about the left humeral head. Degenerative changes of the shoulders and spine. IMPRESSION: No acute process. The above report was generated using voice recognition software. It may contain grammatical, syntax or spelling errors. Electronically signed by: Eliezer Murphy M.D. 07/16/2017 11:10 AM Dictated Date/Time: 07/16/2017 11:09 AM
[2017-07-16 11:34] VITALS: O2SAT 96
[2017-07-16 11:36] LABS: BASO % 0.4 %; BASO ABS # 0.03 K/uL (0-0.2); EOS % 2.1 %; EOS ABS # 0.16 K/uL (0-0.5); HEMATOCRIT 35.8 % (42-52); IG# 0.01 K/uL (0.00-0.02); LYMPH % 22.2 %; LYMPH ABS # 1.67 K/uL (1.2-3.4); MEAN CELL VOLUME 91.8 fL (80-100); MEAN CORPUSCULAR HEMOGLOBIN 30.8 pg (25-34); MEAN CORPUSCULAR HGB CONC 33.5 g/dl (32-36); MEAN PLATELET VOLUME 8.8 fL (7.4-10.4); MONO % 10.2 %; MONO ABS # 0.77 K/uL (0.11-0.59); NEUT ABS # 4.89 K/uL (1.4-6.5); PLATELET COUNT 287 K/uL (130-400); RED CELL DISTRIBUTION WIDTH CV 13.7 % (11.5-14.5); RED CELL DISTRIBUTION WIDTH SD 45.4 fL (36.4-46.3); WHITE BLOOD COUNT 7.53 K/uL (4.8-10.8)
[2017-07-16] MEDS ORDERED: TRAM-10 PO (11:54)
--- NOTE | 2017-07-16 12:03 | DIAGNOSTIC IMAGING REPORT ---
HEAD CT NONCONTRAST CT DOSE: 614.27 mGy.cm HISTORY: EVALUATE ALTERED MENTAL STATUS/WEAKNESS TECHNIQUE: Multiaxial CT images of the head were performed without the use of intravenous contrast. Automated exposure control was utilized for this study. A dose lowering technique was utilized adhering to the principles of ALARA. Comparison: None. Findings: The paranasal sinuses and mastoid air cells are clear. The calvarium and skull base are intact. The ventricles and sulci are within normal limits. There is no mass, hematoma, midline shift, or acute infarct. A few small patchy areas of hypodensity within the white matter. These are nonspecific but favor mild microvascular ischemic change. Impression: No acute intracranial abnormality. A few small patchy areas of hypodensity within the white matter are nonspecific but favor mild microvascular ischemic change. Electronically signed by: Chi Moses M.D. 07/16/2017 12:02 PM Dictated Date/Time: 07/16/2017 11:54 AM
[2017-07-16 12:04] LABS: ALBUMIN 3.5 gm/dl (3.4-5.0); ALKALINE PHOSPHATASE 104 U/L (45-117); ALT/SGPT 23 U/L (12-78); AST/SGOT 22 U/L (15-37); BLOOD UREA NITROGEN 19 mg/dl (7-18); CALCIUM 8.5 mg/dl (8.5-10.1); CARBON DIOXIDE 27 mmol/L (21-32); CREATININE 1.74 mg/dl (0.60-1.40); GLUCOSE 136 mg/dl (70-99); POTASSIUM 4.2 mmol/L (3.5-5.1); SODIUM 137 mmol/L (136-145); TOTAL PROTEIN 6.9 gm/dl (6.4-8.2)
[2017-07-16 15:04] VITALS: BP 137/82; PULSE 63; TEMP 36.7; O2SAT 95
== END 2017-07-16 15:10 | disposition home or self-care (01) ==
LOC: EDBD 10:27 → C.EDC 10:27
DX: R55 Syncope and collapse (principal); E86.0 Dehydration; Z98.890 Other specified postprocedural states; Z96.652 Presence of left artificial knee joint; I10 Essential (primary) hypertension; G62.9 Polyneuropathy, unspecified; Z79.899 Other long term (current) drug therapy

== ENCOUNTER → 2017-10-12 | Outpatient (CLI) | payer OTHER, BC ==
[~2017-10-12] MED LIST changes: -AMLO-110 PO; +AMLO5TAB3 PO; +CHOL1CHW16 PO; +CZR50 PO; -FAMOTIDINE PO; +IBUP-1050 PO; +MULT-1027 PO; +OMEP-334 PO; +PRLSR20 PO; -RXC5 PO; +TRAM-10 PO; -XRL10 PO; +[UNRECOGNIZED DRUG - CODE] PO
[2017-10-12 14:46] LABS: BASO % 0.5 %; BASO ABS # 0.04 K/uL (0-0.2); EOS ABS # 0.22 K/uL (0-0.5); HEMATOCRIT 40.5 % (42-52); HEMOGLOBIN 13.3 g/dL (14.0-18.0); IG# 0.02 K/uL (0.00-0.02); LYMPH % 34.2 %; LYMPH ABS # 2.52 K/uL (1.2-3.4); MEAN CORPUSCULAR HEMOGLOBIN 30.2 pg (25-34); MEAN CORPUSCULAR HGB CONC 32.8 g/dl (32-36); MEAN PLATELET VOLUME 11.1 fL (7.4-10.4); MONO ABS # 0.88 K/uL (0.11-0.59); NEUT ABS # 3.68 K/uL (1.4-6.5); PLATELET COUNT 270 K/uL (130-400); RED CELL DISTRIBUTION WIDTH CV 13.6 % (11.5-14.5); RED CELL DISTRIBUTION WIDTH SD 45.8 fL (36.4-46.3); WHITE BLOOD COUNT 7.36 K/uL (4.8-10.8)
[2017-10-12 15:14] LABS: BLOOD UREA NITROGEN 23 mg/dl (7-18); CALCIUM 8.7 mg/dl (8.5-10.1); CARBON DIOXIDE 21 mmol/L (21-32); CREATININE 1.96 mg/dl (0.60-1.40); GLUCOSE 80 mg/dl (70-99); POTASSIUM 4.2 mmol/L (3.5-5.1); SODIUM 138 mmol/L (136-145)
== END | disposition home or self-care (01) ==
LOC: C.LAB 13:21
PROVIDERS: ATTEND Orthopaedic Surgery Sports Medicine
DX: Z01.812 Encounter for preprocedural laboratory examination (principal)

== ENCOUNTER 2017-10-20 06:37 | Observation (INO) | payer OTHER, BC ==
[2017-10-18 08:27] VITALS: BMI 41.0
--- NOTE | 2017-10-19 17:32 | HISTORY & PHYSICAL EXAMINATION ---
DATE OF ADMISSION: 10/20/2017 CHIEF COMPLAINT: Chronic left shoulder pain. HISTORY OF PRESENT ILLNESS: This is a 66-year-old male patient of Dr. March'viridiana complaining of chronic left shoulder pain, longstanding, now progressively getting worse. The patient has failed conservative treatment. He had an MRI that confirmed a rotator cuff tear, impingement, and AC arthritis. The patient wishes to pursue with left shoulder arthroscopic distal clavicle excision, rotator cuff repair, and subacromial decompression. PAST MEDICAL HISTORY: Hypertension, sleep apnea with the use of CPAP, diabetes mellitus, rheumatoid arthritis, acid reflux, obesity. SOCIAL HISTORY: Nonsmoker, nondrinker. PAST SURGICAL HISTORY: Bilateral shoulder surgery, gastric bypass, left knee replacement, right heel surgery, and gallbladder surgery. MEDICATIONS: Losartan 50 mg daily. FAMILY HISTORY: Noncontributory. REVIEW OF SYSTEMS: Chronic left shoulder pain and weakness. Otherwise, denies any shortness of breath, chest pain, nausea, vomiting or any other joint complaints. PHYSICAL EXAMINATION: HEENT: Normocephalic, atraumatic. Extraocular motions are intact. Pupils are equal and reactive to light. HEART: Regular rate and rhythm, no murmurs appreciated. LUNGS: Clear. ABDOMEN: Soft, nontender, bowel sounds present. EXTREMITIES: Left shoulder positive AC joint tenderness. He has 3/5 strength globally. He has positive impingement maneuvering. Neurologically and neurovascularly he is intact in his left upper extremity. DIAGNOSES: Left shoulder rotator cuff tear, acromioclavicular arthritis and impingement. He also has a history of hypertension, sleep apnea with the use of CPAP, diabetes mellitus, rheumatoid arthritis, sciatica, acid reflux, obesity. PLAN: The patient was advised of his diagnosis. Indications, risks, benefits, postop course have all been reviewed. The patient wished to proceed with a left shoulder arthroscopic distal clavicle excision, rotator cuff repair, and subacromial decompression. Necessary consent forms, preoperative testing and clearances will be obtained.
[~2017-10-20] VITALS: Ht 188 cm; Wt 145.4 kg
[2017-10-20] VITALS (8 sets, daily range): BP systolic 135–180; BP diastolic 71–90; PULSE 48–99; TEMP 36.3–36.6; O2SAT 97–100; Ht 188 cm; Wt 145.4 kg
[~2017-10-20 06:37] MED LIST changes: -ACET-24 PO; -AMLO5TAB3 PO; +BUPIVACAINE 0.5 % 5 MG/1 ML PF 10ML VIAL ONE; -CARB200T PO; +CEFAZOLIN 3000MG IV PUSH 22.5 ML IV SCH; -CYAN500T13 PO; +EpINEphrine INJ 1MG/ML AMP 1 MG/ML AMP ONE; -FERR1TAB23 PO; -IBUP-1050 PO; +LACTATED RINGER'S 1000ML 1,000 ML IV SCH; -LOSARTAN PO; -PRLSR20 PO; +ROPIVACAINE 0.5% 5 MG/ML 30 ML VIAL ONE; -TRAM-10 PO; -VITAMIN D3 PO
[2017-10-20] MEDS ORDERED: IBUP-1050 PO (07:10)
[2017-10-20] MEDS ORDERED: PRLSR20 PO (07:10)
[2017-10-20] MEDS ORDERED: CLONIDINE HCL 100 MCG/ML SYRINGE ONE (07:22)
[2017-10-20] MEDS ORDERED: FENTANYL CITRATE INJ 50 MCG/1 ML 2 ML VIAL ONE (07:52)
[2017-10-20] MEDS ORDERED: MIDAZOLAM HCL 1 MG/ML 2ML VIAL ONE (07:52)
[2017-10-20] MEDS ORDERED: PHENYLEPHRINE 100MCG/ML 5ML SYR IV PRN (09:00)
[2017-10-20] MEDS ORDERED: HYDROmorphone INJ 2 MG/ML SYR/VIAL IV PRN (09:00)
[2017-10-20] MEDS ORDERED: EpHEDrine SULFATE INJ 50 MG/ML AMP IV PRN (09:00)
[2017-10-20] MEDS ORDERED: ATROPINE SULFATE 0.1 MG/ML 5ML SYR IV PRN (09:00)
[2017-10-20] MEDS ORDERED: FLUMAZENIL 0.1 MG/1 ML 10 ML VIAL IV PRN (09:00)
[2017-10-20] MEDS ORDERED: NALOXONE HCL 0.4 MG/1 ML VIAL/CARP IV PRN (09:00)
[2017-10-20] MEDS ORDERED: MEPERIDINE HCL 25 MG/ML CARP IV PRN (09:00)
[2017-10-20] MEDS ORDERED: LABETALOL HCL IV 5 MG/ML 20ML IV PRN (09:00)
[2017-10-20] MEDS ORDERED: ONDANSETRON INJ 2 MG/ML 2 ML VIAL IV PRN (09:00)
[2017-10-20] MEDS ORDERED: EpINEphrine HCL INJ 1 MG/ML 1ML SYRINGE ONE ×4 (09:24→12:10)
[2017-10-20] MEDS ORDERED: DEXAMETHASONE SOD INJ 4 MG/ML VIAL ONE (10:20)
[2017-10-20] MEDS ORDERED: ONDANSETRON INJ 2 MG/ML 2 ML VIAL ONE (10:20)
[2017-10-20] MEDS ORDERED: LIDOCAINE HCL 2% 2 ML VIAL (20MG/ML) ONE (10:20)
[2017-10-20] MEDS ORDERED: PROPOFOL IV EMULSION 10 MG/ML 20 ML VIAL ONE (10:20)
[2017-10-20] MEDS ORDERED: GLYCOPYRROLATE INJ 0.2 MG/ML VIAL ONE (10:20)
[2017-10-20] MEDS ORDERED: EpHEDrine SULFATE 50MG/5ML SYR ONE (10:20)
[2017-10-20] MEDS ORDERED: PHENYLEPHRINE 100MCG/ML 5ML SYR ONE (10:20)
[2017-10-20] MEDS ORDERED: PHENYLEPHRINE HCL INJ 10 MG/ML VIAL ONE (11:22)
--- NOTE | 2017-10-20 12:56 | [facility] Post Operative Brief Note ---
Immediate Operative Summary Operative Date Oct 20, 2017. Pre-Operative Diagnosis Left shoulder recurrent rotator cuff tear, acromioclavicular arthritis and impingement Post-Operative Diagnosis Left shoulder recurrent rotator cuff tear, acromioclavicular arthritis and impingent and biceps tendinopathy and heterotopic ossification deltoid Procedure(s) Performed Left Shoulder Arthroscopy Revision, Distal Clavical Excision With Rotator Cuff Repair, Subacromial Decompression, Biceps Tenodesis,debridenent ,excision heterotopic bone Surgeon Dr. March Ladle Mechanic Surgeon(s) Edward Dick PA-C Estimated Blood Loss 15 cc Findings Consistent with Post-Op Diagnosis Specimens none per surgeon Drains None Anesthesia Type General Regional Complication(s) none Disposition Disposition: Recovery Room / PACU Overlapping Procedure I was present for: the critical portions of procedure.
[2017-10-20] MEDS ORDERED: ACETAMINOPHEN 325 MG TAB PO PRN (13:00)
[2017-10-20] MEDS ORDERED: MoRPHine SULFATE 4 MG/ML 1 ML CARP\\VIAL IV PRN (13:00)
[2017-10-20] MEDS ORDERED: ZOLPIDEM TARTRATE 5 MG TAB PO PRN (13:00)
[2017-10-20] MEDS: FENTANYL CITRATE INJ 50 MCG/1 ML 2 ML VIAL IV PRN ×2 (13:17→13:24)
--- NOTE | 2017-10-20 13:54 | Anesthesiology Progress Note ---
Anesthesia Post Op Note Date & Time Oct 20, 2017 at 13:54 Vital Signs Pain Intensity: 3 Vital Signs Past 12 Hours Date Time Temp Pulse Resp B/P (MAP) Pulse Ox O2 Delivery O2 Flow Rate FiO2 10/20/17 13:50 93 15 167/94 97 Nasal Cannula 2 10/20/17 13:35 85 15 158/89 97 Nasal Cannula 2 10/20/17 13:25 36.4 85 15 139/89 97 Nasal Cannula 2 10/20/17 13:15 88 16 158/88 100 Oxymask 10 10/20/17 13:05 90 16 147/82 100 Oxymask 10 10/20/17 12:59 36.1 96 16 153/85 100 Oxymask 10 10/20/17 07:10 36.6 48 20 135/71 (92) 98 Room Air Notes Mental Status: alert / awake / arousable, participated in evaluation Pt Amnestic to Procedure: Yes Nausea / Vomiting: adequately controlled Pain: adequately controlled Airway Patency, RR, SpO2: stable & adequate BP & HR: stable & adequate Hydration State: stable & adequate Anesthetic Complications: no major complications apparent
[2017-10-20] MEDS ORDERED: IV FLUIDS COMPLETED PRN (14:00)
[2017-10-20] MEDS ORDERED: MoRPHine SULFATE 2 MG/ML CARP IV PRN (14:30)
[2017-10-20] MEDS: CEFAZOLIN IV 2,000 MG in SYRINGE 0 ML IV SCH ×2 (14:47→22:48)
[2017-10-20] MEDS: OXYCODONE/ACETAMINOPHEN 5-325 TAB PO PRN ×2 (14:47→18:29)
[2017-10-20] MEDS: D5W AND 1/2NSS + 20MEQ KCL 1,000 ML IV SCH ×2 (14:47→22:55)
--- NOTE | 2017-10-20 18:55 | OPERATIVE REPORT ---
DATE OF OPERATION: 10/20/2017 INDICATION FOR PROCEDURE: The patient is a 66-year-old male who has a history of previous decompression, rotator cuff repair, left shoulder in the past, did well for many years and then had a recent lifting injury, had marked pain, weakness. Exam was consistent with a complete retear of his rotator cuff. MRI verifies a large tear of his rotator cuff supraspinatus and anterior infraspinatus with detachment and mild retraction. He also has hypertrophic AC joint arthritis, recurrent spurs noted in the subacromial space. PREOPERATIVE DIAGNOSES: Recurrent rotator cuff tear status post prior rotator cuff repair, status post prior decompression with recurrent impingement and moderately advanced acromioclavicular joint arthritis contributing to impingement at the left shoulder. 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 PROCEDURE: Left shoulder arthroscopic rotator cuff repair, revision, decompression, primary distal clavicle excision and debridement with excision heterotopic ossification deltoid and an arthroscopic biceps tenodesis. SURGEON: Cash March MD SENIOR PROGRAMMER: Edward Dick PA-C ANESTHESIA: Regional block and general. ESTIMATED BLOOD LOSS: 15 mL. Findings consistent with postoperative diagnosis. SPECIMENS: None. DRAINS: None. ANESTHESIA: General, regional block. COMPLICATIONS: None. OPERATIVE PROCEDURE: The patient was taken to the operating room, anesthetized under regional block with general anesthetic. He was positioned on a [facility] shoulder table in 70-degree beach position. His left shoulder was examined under anesthesia. He had good passive range of motion. He had healed scars from old arthroscopic surgery of the shoulder. He was an obese individual, but only had some moderate obesity about the shoulder. His left shoulder was prepped and draped with ChloraPrep in usual sterile fashion. Arthroscopy was started with posterior arthroscopic portal in the soft spot. The scope was introduced into the glenohumeral joint and then we made an anterior portal in the rotator interval just anterior to the distal clavicle. Subsequent portals were lateral arthroscopic working portal and 2 superior lateral portals for suture anchor placement. Intraarticular findings demonstrated just minor wear in the mid glenoid and relatively good articular surfaces on both humeral head and the glenoid. Labrum was intact circumferentially. The biceps tendon had widening and tendinopathy with fraying of the biceps. The subscapularis tendon was intact. The supraspinatus tendon was completely torn from the greater tuberosity retracted about midway onto the acromion. The infraspinatus was also completely torn and the teres minor was intact. There was a split between the infraspinatus and the supraspinatus. There was chronic subacromial bursitis which was thickened and scarred overlying the rotator cuff but mainly lateral posteriorly. The acromion had some recurrent spurs that appear to be creating some impingement, most of the spurs at the AC joint site where the patient had hypertrophic AC joint. There was also fairly large piece of heterotopic bone which was about 6 mm in diameter that was in the deltoid fascia. This likely would cause some lateral abduction and impingement. Attention was first taken to the glenohumeral joint. We did a minor debridement of the glenoid, debrided some of the synovial tissue. We placed a spinal needle through the biceps tendon and placed a #1 PDS suture to control the biceps and then did a tenotomy using a radiofrequency ablator, the biceps off the superior labrum. Then the undersurface of the rotator cuff was debrided. The rotator interval just above the subscapularis at the base of the coracoid was released and the undersurface of the supraspinatus capsule superiorly was released with radiofrequency ablator to mobilize the supraspinatus and infraspinatus as well. Attention was taken to the subacromial space at which time a very thorough bursectomy was performed removing all scarred bursa tissue off the rotator cuff tear to fully identify the cuff tear pattern. The remnants of the torn rotator cuff tissue on the greater tuberosity were debrided from the articular margin out the lateral greater tuberosity at both the infraspinatus and footprints of the infraspinatus and the supraspinatus were fully debrided down to bone. The upper bicipital groove was debrided down to bone. The undersurface of the biceps was previously debrided. The heterotopic ossification was shelled out with the radiofrequency ablator from the deltoid fascia and excised with a grasper. A revision decompression was performed with a 5.5 bur to plane down the acromion to a type 1 shape removing any recurrent spurs, making a nice smooth surface. The 1 cm distal clavicle was resected using a 5.5 bur, preserving superior and posterior capsule for stability. The edge of the rotator cuff tear was debrided. Rotator cuff was repaired with dual-row fixation. The biceps was first tenodesed in the groove. I used a Perkins [employer] Nephew Q-FIX 2.8 mm suture anchor placed in the upper bicipital groove. I placed a whipstitch with 3 passes of the suture passer, which was the scorpion suture passer and then we did an additional suture with a simple suture for the tenodesis. Simple suture was tied with a Hopkins sliding locking knot 3 reverse half hitches and alternating posts set the tension and then whip stitch was tied down with surgeon's knot. The excess biceps was resected. The repair was secured through passive range of motion of the elbow. Then, the rotator cuff was repaired using 5.5 Healicoil suture anchors medially which were double loaded with 2 Ultrabraid and these were tied in horizontal mattress fashion near the supraspinatus, both were placed in horizontal mattress fashion and tied. In the infraspinatus, there was a smaller tear, so we placed one horizontal mattress suture and 2 transosseous equivalent sutures placed behind the horizontal mattress. These knots were the similar Willy sliding locking knots, 3 reverse half hitches and alternating posts to tie the sutures with medial row fixation. Then 2 footprints were placed laterally. We did a crisscross compression using one suture from each anchor, with 4 sutures into each 5.5 footprint laterally. We placed one of the sutures of the anterior anchor back to the anterior supraspinatus rotator interval tissue for additional fixation, tied with surgeon's knot. Repair was secured with the arm at the side. There was no impingement with range of motion. The portal sites were closed with nylon sutures. Sterile dressings were applied and a sling immobilizer. The patient did have a moderate soft tissue extravasation. The patient tolerated the procedure well. CARLOS ENRIQUE Meyer was my lab assistant and functioned as hospital medical assistant for the entire procedure. He assisted in patient positioning, prepping, draping, arm positioning, soft tissue retraction. He assisted in instrument management, suture management and he performed the subcutaneous skin closure, sling application and will participate in the postoperative care of the patient. I attest to the content of the Intraoperative Record and any orders documented therein. Any exceptions are noted below. GABRIEL
[2017-10-21 03:20] VITALS: BP 113/67; PULSE 73; TEMP 36.3; O2SAT 98
[2017-10-21] MEDS: OXYCODONE/ACETAMINOPHEN 5-325 TAB PO PRN (06:28)
[2017-10-21 07:45] VITALS: BP 144/79; PULSE 62; TEMP 36.4; O2SAT 98
--- NOTE | 2017-10-21 07:45 | Anesthesiology Progress Note ---
Anesthesia Post Op Note Date & Time Oct 21, 2017 at 07:45 Vital Signs Pain Intensity: 5.0 Vital Signs Past 12 Hours Date Time Temp Pulse Resp B/P (MAP) Pulse Ox O2 Delivery O2 Flow Rate FiO2 10/21/17 03:20 36.3 73 16 113/67 (82) 98 CPAP 10/20/17 22:55 36.4 77 16 145/80 (101) 100 Room Air Notes Mental Status: alert / awake / arousable, participated in evaluation Pt Amnestic to Procedure: Yes Nausea / Vomiting: adequately controlled Pain: adequately controlled Airway Patency, RR, SpO2: stable & adequate BP & HR: stable & adequate Hydration State: stable & adequate Neuraxial Anesthesia: sensory block resolved Anesthetic Complications: no major complications apparent
--- NOTE | 2017-10-21 08:08 | Orthopedic Progress Note ---
Orthopedic Progress Note Date of Service Oct 21, 2017. Subjective Post OP Day: 1 Reports: feeling well, pain controlled w PO medications, Denies: complaints, chest pain, SOB, nausea / vomiting, light headedness, calf pain Additional Notes: Sugars elevated will D/C IV's. Objective N/V intact, capillary refill less than 2 sec., dressing C/D/I, A&O x3 Sling in tact, fingers mobile. Date Time Temp Pulse Resp B/P (MAP) Pulse Ox O2 Delivery O2 Flow Rate FiO2 10/21/17 03:20 36.3 73 16 113/67 (82) 98 CPAP 10/20/17 22:55 36.4 77 16 145/80 (101) 100 Room Air 10/20/17 19:15 Room Air 10/20/17 18:51 36.4 85 17 167/81 (109) 97 Room Air 10/20/17 17:08 36.3 94 16 163/90 (114) 97 Room Air 10/20/17 16:09 36.3 99 16 157/82 (107) 100 Room Air 10/20/17 15:07 89 18 180/89 (119) 97 10/20/17 14:45 36.4 96 18 162/80 (107) 98 Room Air 10/20/17 14:05 99 Room Air 10/20/17 14:05 Room Air 10/20/17 13:50 93 15 167/94 97 Nasal Cannula 2 10/20/17 13:35 85 15 158/89 97 Nasal Cannula 2 10/20/17 13:25 36.4 85 15 139/89 97 Nasal Cannula 2 10/20/17 13:15 88 16 158/88 100 Oxymask 10 10/20/17 13:05 90 16 147/82 100 Oxymask 10 10/20/17 12:59 36.1 96 16 153/85 100 Oxymask 10 Assessment & Plan Assessment: POD #1, Left shoulder RCR, biceps tenodesis, DCE, SAD. Plan: Pain control. HEP as instructed. D/C IV's D/C home. Inhouse Planning Pain Management: Percocet, Morphine, PO Tylenol DVT Prophylaxis: SCDs Discharge Planning Discharge Planning: home Pain Management: Percocet
[2017-10-21] MEDS ORDERED: OXYC-57 PO (08:10)
--- NOTE | 2017-10-21 08:14 | Discharge Instructions ---
Discharge Instructions Date of Service Oct 21, 2017. Admission Reason for Admission: Left Shoulder Impingement Syndrome, Osteoarthritis Discharge Discharge Diagnosis / Problem: Left rotator cuff repair, biceps repair, decompression. Discharge Goals Goal(s): Improve function Activity Recommendations Activity Limitations: as noted below . Instructions / Follow-Up Instructions / Follow-Up Please see printed Home Instructions and Home Exercise sheets in chart. Follow up with Dr. March's office as scheduled 10-12 days post op. Sugars were elevated post op likely due to stress of surgery and IV fluids, follow up with PCP for sugars check. Current Hospital Diet Patient's current hospital diet: Diabetes Type 2 Diet Discharge Diet Recommended Diet: Diabetes Type 2 Diet Procedures Procedures Performed: Left Shoulder Arthroscopy Revision, Distal Clavical Excision With Rotator Cuff Repair, Subacromial Decompression, Biceps Tenodesis,debridenent ,excision heterotopic bone Pending Studies Studies pending at discharge: no Medical Emergencies . Who to Call and When: Medical Emergencies: If at any time you feel your situation is an emergency, please call 911 immediately. . Non-Emergent Contact Non-Emergency issues call your: Primary Care Provider . "Provider Documentation" section prepared by Edward Dick. . [place] Drug Monitoring Program Search Results: patient reviewed within database, no issues identified
[2017-10-21] MEDS ORDERED: NON-FORMULARY MEDICATION (Omeprazole (Prilosec) 20 MG) PO SCH (09:00)
[2017-10-21] MEDS ORDERED: LOSARTAN POTASSIUM 50 MG TAB PO SCH (09:00)
[2017-10-21] MEDS ORDERED: PANTOprazole SOD 40 MG TAB PO SCH (09:00)
[2017-10-21] MEDS ORDERED: CHOLECALCIFEROL 1000 INTER.UNIT TAB PO SCH (09:00)
[2017-10-21] MEDS ORDERED: MULTIVITAMIN TAB PO SCH (09:00)
[2017-10-21 10:08] VITALS: BP 144/79; PULSE 62; TEMP 36.4; O2SAT 98
== END 2017-10-21 11:48 | disposition home or self-care (01) ==
LOC: C.ACU 06:37 → ENRESERV 13:20 → C.3E 14:01
PROVIDERS: ADMIT Orthopaedic Surgery Sports Medicine; ATTEND Orthopaedic Surgery Sports Medicine
DX: M75.102 Unspecified rotator cuff tear or rupture of left shoulder, not specified as traumatic (principal); M19.012 Primary osteoarthritis, left shoulder; M25.812 Other specified joint disorders, left shoulder; I10 Essential (primary) hypertension; G47.33 Obstructive sleep apnea (adult) (pediatric); E78.5 Hyperlipidemia, unspecified; E11.9 Type 2 diabetes mellitus without complications; M06.9 Rheumatoid arthritis, unspecified; K21.9 Gastro-esophageal reflux disease without esophagitis; Z98.84 Bariatric surgery status; Z88.8 Allergy status to other drugs, medicaments and biological substances

== ENCOUNTER 2019-08-16 05:07 | Inpatient (IN) ==
[2019-05-23 12:50] LABS: Basophils # (auto) 0.05 K/uL (0-0.2); Basophils % (auto) 0.6 %; Eosinophils # (auto) 0.14 K/uL (0-0.5); Eosinophils % (auto) 1.6 %; Hematocrit (blood only) 44.1 % (42-52); Hemoglobin 14.3 g/dL (14.0-18.0); Immature Granulocytes # (auto) 0.03 K/uL (0.00-0.02); Immature Granulocytes % (auto) 0.3 %; Lymphocytes # (auto) 2.66 K/uL (1.2-3.4); Lymphocytes % (auto) 29.5 %; Mean Corpuscular Hemoglobin 29.5 pg (25-34); Mean Corpuscular Hgb Conc 32.4 g/dL (32-36); Mean Corpuscular Volume 91.1 fL (80-100); Mean Platelet Volume 11.3 fL (7.4-10.4); Monocytes % (auto) 11.1 %; Neutrophils # (auto) 5.13 K/uL (1.4-6.5); Neutrophils % (auto) 56.9 %; Platelet Count 277 K/uL (130-400); RDW Coefficient of Variation 14.1 % (11.5-14.5); RDW Standard Deviation 46.9 fL (36.4-46.3); Red Blood Count 4.84 M/uL (4.7-6.1); White Blood Count 9.01 K/uL (4.8-10.8)
[2019-05-23 12:58] LABS: Albumin Level 3.9 gm/dl (3.4-5.0); BUN Creatinine Ratio 8.5 (10-20); Blood Urea Nitrogen 16 mg/dl (7-18); Calcium 9.1 mg/dl (8.5-10.1); Carbon Dioxide 31 mmol/L (21-32); Chloride 104 mmol/L (98-107); Est GFR (African American) 40.3; Est GFR (Non-African American) 34.7; Glucose 130 mg/dl (70-99); Sodium 139 mmol/L (136-145)
[2019-05-23 13:09] LABS: INR 0.9 (0.9-1.1); Partial Thromboplastin Ratio 1.1; Partial Thromboplastin Time 29.3 Seconds (21.0-31.0)
[2019-05-23 13:10] LABS: Estimated Average Glucose 148 mg/dl; Hemoglobin A1C 6.8 % (4.5-5.6)
[2019-05-23 13:16] LABS: Appearance Urine Clear (Clear); Bilirubin Urine Negative (Negative); Blood Urine Negative (Negative); Color Urine Yellow; Glucose Urine UA Negative (Negative); Ketones Urine Negative (Negative); Leukocyte Esterase Urine Negative (Negative); Nitrite Urine Negative (Negative); Protein Urine Negative (Negative); Specific Gravity Urine 1.015 (1.000-1.030); Urobilinogen Urine Negative (Negative); pH Urine 5.5 (4.5-7.5)
[2019-08-11 11:21] LABS: Appearance Urine Clear (Clear); Bilirubin Urine Negative (Negative); Blood Urine Negative (Negative); Color Urine Yellow; Glucose Urine UA Negative (Negative); Ketones Urine Negative (Negative); Leukocyte Esterase Urine Negative (Negative); Nitrite Urine Negative (Negative); Protein Urine Negative (Negative); Specific Gravity Urine 1.011 (1.000-1.030); Urobilinogen Urine Negative (Negative)
[2019-08-11 11:23] LABS: Basophils # (auto) 0.05 K/uL (0-0.2); Basophils % (auto) 0.7 %; Eosinophils % (auto) 2.9 %; Hematocrit (blood only) 38.6 % (42-52); Hemoglobin 12.7 g/dL (14.0-18.0); Immature Granulocytes # (auto) 0.01 K/uL (0.00-0.02); Immature Granulocytes % (auto) 0.1 %; Lymphocytes # (auto) 1.88 K/uL (1.2-3.4); Lymphocytes % (auto) 27.1 %; Mean Corpuscular Hemoglobin 29.9 pg (25-34); Mean Corpuscular Hgb Conc 32.9 g/dL (32-36); Mean Corpuscular Volume 90.8 fL (80-100); Mean Platelet Volume 10.2 fL (7.4-10.4); Monocytes # (auto) 0.74 K/uL (0.11-0.59); Monocytes % (auto) 10.6 %; Neutrophils # (auto) 4.07 K/uL (1.4-6.5); Neutrophils % (auto) 58.6 %; Platelet Count 247 K/uL (130-400); RDW Coefficient of Variation 14.1 % (11.5-14.5); RDW Standard Deviation 46.4 fL (36.4-46.3); Red Blood Count 4.25 M/uL (4.7-6.1); White Blood Count 6.95 K/uL (4.8-10.8)
[2019-08-11 11:32] LABS: INR 0.9 (0.9-1.1); Partial Thromboplastin Time 28.2 Seconds (21.0-31.0)
[2019-08-11 11:53] LABS: Albumin Level 3.4 gm/dl (3.4-5.0); BUN Creatinine Ratio 7.1 (10-20); Blood Urea Nitrogen 12 mg/dl (7-18); Calcium 8.3 mg/dl (8.5-10.1); Carbon Dioxide 24 mmol/L (21-32); Chloride 110 mmol/L (98-107); Est GFR (Non-African American) 39.7; Glucose 104 mg/dl (70-99); Potassium 4.1 mmol/L (3.5-5.1); Sodium 140 mmol/L (136-145)
[2019-08-11 13:18] LABS: Estimated Average Glucose 151 mg/dl; Hemoglobin A1C 6.9 % (4.5-5.6)
--- NOTE | 2019-08-11 15:23 | Anesthesiology Consultation ---
Date of Service August 11, 2019 Assessment & Plan (1) Encounter for pre-operative examination: Chart Review Chart Review: Acceptable Risk for Surgery and Patient NOT seen in Pre Admission Testing - Check BSG AM DOS Per nursing assessment 08/11/19, pt resides in [facility]. Traveled to [facility] (has second home there). Located in [facility] (No Covid cases known in area. Returned 08/04/19. Practiced good hand hygiene and wore mask in public). Covid testing done 08/10- results negative Seen by cardio 05/16/19=Clinically his cardiac status stable, no evidence of angina, CHF, or significant arrhythmia. He is reasonable active, has good exercise tolerance. He had TKA two years ago and tolerated surgery well. "Pt is cleared for this required surgery from cardiac standpoint. He will be considered low cardiac risk." Seen by PCP 05/09/19= HTN uncontrolled. Bradycardia noted- ordered ECHO and cardio clearance. CKD Stage 3B. Sleep apnea- on CPAP. Edema to LEs- started on small dose of HCTZ. Left shoulder arthroscopy 10/20/17= Done under [facility] with LMA #5. History Surgery Operation Date: 06/08/19 07:15 Proposed Procedures p Right Total Knee Arthroplasty - Cash March MD Operation Date: 08/16/19 10:00 Proposed Procedures p Right Total Knee Arthroplasty - Cash March MD Height/Weight Height: 6 ft 2 in Weight: 154.221 kg Allergies Allergy/AdvReac Type Severity Reaction Status Date / Time No Known Allergies Allergy Verified 08/11/19 13:44 Medications Home Medications Medication Instructions Recorded Confirmed Last Taken hydrochlorothiazide 25 mg PO QAM 05/16/19 08/11/19 Unknown losartan 25 mg PO QAM 05/16/19 08/11/19 Unknown Past Medical History Medical History GERD (gastroesophageal reflux disease) Hx of cardiac murmur No significant valve issues per 04/2019 ECHO Hx of diabetes mellitus RESOLVED AFTER GASTRIC BYPASS 8 YRS AGO Hyperlipidemia Hypertension Osteoarthritis Peripheral neuropathy Skin cancer Sleep apnea CPAP Syncopal episodes WHEN REMOVING [place] WITH LEFT TKA Past Family History Family History Other No significant family history Past Surgical History Surgical History History of ankle surgery RT ANKLE BONE CHIP REMOVED History of arthroscopy RT/LEFT KNEE History of cardiac cath 2 YEARS AGO (NO STENTS) History of cholecystectomy History of colonoscopy History of esophagogastroduodenoscopy (EGD) History of gastric bypass 8 YRS AGO History of repair of rotator cuff RT/LEFT (LEFT SIDE DONE X 2) History of tooth extraction History of total knee replacement LEFT Hx of hand surgery RT INDEX FINGER Social History Smoking Status: Former smoker tobacco type: cigarettes Do You Dip or Chew Tobacco: No Smoking End Date: 1970 (SMOKED FO R 1 YEAR) Hx Alcohol Use: No Hx Substance Use: No substance use type: does not use Testing Laboratory Results 08/11/19 10:36 08/11/19 10:36 PT 10.0 Seconds (9.0-12.0) 08/11/19 10:36 INR 0.9 (0.9-1.1) 08/11/19 10:36 APTT 28.2 Seconds (21.0-31.0) 08/11/19 10:36 Hemoglobin A1c 6.9 % (4.5-5.6) H 08/11/19 10:36 Urine Color Yellow 08/11/19 10:36 Urine Appearance Clear (Clear) 08/11/19 10:36 Urine pH 5.0 (4.5-7.5) 08/11/19 10:36 Ur Specific [place] 1.011 (1.000-1.030) 08/11/19 10:36 Urine Protein Negative (Negative) 08/11/19 10:36 Urine Glucose (UA) Negative (Negative) 08/11/19 10:36 Urine Ketones Negative (Negative) 08/11/19 10:36 Urine Nitrite Negative (Negative) 08/11/19 10:36 Ur Leukocyte Esterase Negative (Negative) 08/11/19 10:36 Blood Type A Positive 08/11/19 10:37 Antibody Screen NEGATIVE 08/11/19 10:37 Electrocardiogram Date: 05/23/19 Findings: + SB @ (51) Chest X-Ray Date: 05/23/19 Findings: + NAD Echocardiogram Date: 05/15/19 EF: 55-60% LV Function: normal LV mildly dilated. LA moderately dilated. RA mildly dilated. Mild MR. Mild TR. Mild pulm HTN with RVSP 34.54mmHg. Mild NE
--- NOTE | 2019-08-15 17:35 | History and Physical Report ---
DATE OF ADMISSION: 08/16/2019 CHIEF COMPLAINT: Chronic right knee pain. HISTORY OF PRESENT ILLNESS: This is a 68-year-old male patient of Dr. March'viridiana complaining of chronic right knee pain, longstanding, now progressively getting worse. The patient has failed conservative treatment including intraarticular injections, anti-inflammatories and the use of a brace. The patient has increased pain with weightbearing activities and his pain does interfere with his activities of daily living. The patient has been diagnosed with end-stage osteoarthritis per clinical and radiographic exams and wishes to proceed with a right total knee arthroplasty. PAST MEDICAL HISTORY: Hypertension, sleep apnea, peripheral neuropathy, osteoarthritis, sciatica, acid reflux, obesity, melanoma cancer. SOCIAL HISTORY: Nonsmoker, nondrinker. FAMILY HISTORY: Noncontributory. REVIEW OF SYSTEMS: Chronic right knee pain, otherwise denies any shortness of breath, chest pain, nausea, vomiting or other joint complaints. PAST SURGICAL HISTORY: Melanoma removal of the skin, bilateral shoulders, bilateral knees, right index finger, cholecystectomy, and gastric bypass. MEDICATIONS: 1. Losartan 25 mg twice daily. 2. Hydrochlorothiazide 25 mg daily. ALLERGIES: No known drug allergies. PHYSICAL EXAMINATION: GENERAL: Well-developed, well-nourished 68-year-old male in no acute distress. He is alert and oriented x3 and pleasant. HEENT: Normocephalic, atraumatic. Extraocular motions are intact. Pupils are equal and reactive to light. HEART: Regular rate and rhythm, no murmurs. LUNGS: Clear. ABDOMEN: Soft, nontender, bowel sounds present. EXTREMITIES: Right knee reveals a varus deformity with medial joint line tenderness. Ligaments are stable. Range of motion is limited at 0-90. He has 5/5 strength with pain. Neurologically and neurovascularly, he is intact in his right lower extremity. DIAGNOSES: Right knee end-stage osteoarthritis, hypertension, sleep apnea, peripheral neuropathy, osteoarthritis, sciatica, acid reflux, obesity, history of melanoma cancer. PLAN: The patient was advised of his diagnosis. Indications, risks, benefits, postop course have all been reviewed. The patient wishes to proceed with a right total knee arthroplasty. Necessary consent forms, preoperative testing and clearances will be obtained.
[2019-08-16] MEDS ORDERED: TRANEXAMIC ACID 1,000 MG **IV Intra-op IV SCH (06:00)
[2019-08-16] MEDS ORDERED: dexAMETHasone 4 MG TAB PO SCH (06:00)
[2019-08-16] MEDS ORDERED: ROPIVACAINE 0.5% HCL/PF 150 MG, BUPIVACAINE 0.5% MPF 30 ML, EPINEPHrine 30MG/30ML (OR U... INSTIL SCH (06:00)
[2019-08-16] MEDS ORDERED: CeleBREX 200 MG CAP PO SCH ×2 (06:00→21:00)
[2019-08-16] MEDS ORDERED: METOCLOPRAMIDE HCL 10 MG TABLET PO SCH (06:00)
[2019-08-16] MEDS ORDERED: CEFAZOLIN 3000MG 72.5 ML IV SCH (06:00)
[2019-08-16] MEDS ORDERED: ACETAMINOPHEN 500 MG TAB PO SCH (06:00)
[2019-08-16] MEDS ORDERED: FAMOTIDINE 20 MG TAB PO SCH (06:00)
[2019-08-16] MEDS ORDERED: LR 15ML/HR IV SCH (06:00)
[2019-08-16] MEDS ORDERED: TRANEXAMIC ACID 1,000 MG **IV Pre-op IV SCH (06:00)
[2019-08-16] MEDS ORDERED: GABAPENTIN 300 MG CAP PO SCH (06:00)
[2019-08-16] MEDS ORDERED: BUPIVACAINE 0.5 % 5 MG/1 ML PF 10ML VIAL ONE (06:30)
[2019-08-16] MEDS ORDERED: BUPIVACAINE/EPINEPHRINE 0.25% 1:200,000 30 ML VIAL ONE (06:30)
[2019-08-16] MEDS ORDERED: fentaNYL citrate 100 MCG/2 ML VIAL ONE ×2 (06:50→10:23)
[2019-08-16] MEDS ORDERED: MIDAZOLAM HCL 1 MG/ML 2ML VIAL ONE (06:51)
[2019-08-16] MEDS ORDERED: BACITRACIN INJ 50,000 UNIT VIAL ONE (07:09)
[2019-08-16] MEDS ORDERED: ePHEDrine sulfate 50 MG/ML AMP IV PRN (07:09)
[2019-08-16] MEDS ORDERED: ORTHO JOINT ANESTHETIC ONE (07:09)
[2019-08-16] MEDS ORDERED: fentaNYL citrate 100 MCG/2 ML VIAL IV PRN (07:09)
[2019-08-16] MEDS ORDERED: HYDROmorphone INJ 2 MG/ML SYR/VIAL IV PRN (07:09)
[2019-08-16] MEDS ORDERED: ONDANSETRON INJ 2 MG/ML 2 ML VIAL IV PRN ×2 (07:09→11:46)
[2019-08-16] MEDS ORDERED: ATROPINE SULFATE 0.1 MG/ML 10ML SYR IV PRN (07:09)
--- NOTE | 2019-08-16 07:17 | History & Physical Bridge Note ---
Date of Service August 16, 2019 History & Physical Bridge Note I have examined the patient, reviewed the History & Physical and in the interval since the performance of the History & Physical I have noted the following changes of clinical significance: no changes noted
[2019-08-16] MEDS ORDERED: PROPOFOL IV EMULSION 10 MG/ML 20 ML VIAL IV ONE (08:07)
[2019-08-16] MEDS ORDERED: DEXAMETHASONE SOD INJ 4 MG/ML VIAL ONE (08:07)
[2019-08-16] MEDS ORDERED: LIDOCAINE HCL 2% 2 ML VIAL/AMP(20MG/ML) INFIL ONE (08:07)
[2019-08-16] MEDS ORDERED: ROCURONIUM BROMIDE 10 MG/ML 5 ML VIAL IV ONE (08:10)
[2019-08-16] MEDS ORDERED: HYDROmorphone INJ 2 MG/ML SYR/VIAL ONE (08:14)
[2019-08-16] MEDS ORDERED: ePHEDrine sulfate 50 MG/ML SYR ONE (08:43)
--- NOTE | 2019-08-16 10:28 | Post Operative Brief Note ---
Immediate Post Op Note v1 Date of Surgery August 16, 2019 Pre & Post Diagnosis Operation Date: 06/08/19 07:15 <No data on this case meets the specified criteria> Operation Date: 08/16/19 07:30 Pre-Op Diagnosis: Right knee osteoarthritis, obesity BMI 44.0 Post-Op Diagnosis: Right knee osteoarthritis, obesity BMI 44.0 I identified the patient and participated in the time-out.: Yes Procedure Operation Date: 06/08/19 07:15 <No data on this case meets the specified criteria> Operation Date: 08/16/19 07:30 Actual Procedures p Right Total Knee Arthroplasty(Right), application superficial wound VAC, increased difficulty BMI 44.0- Cash March MD Surgeon Cash March MD Tool Programmer CARLOS ENRIQUE Meyer Estimated Blood Loss 5 Findings Consistent with Post-Op Diagnosis Specimens Bone cuts Drains Hemovac Drain Anesthesia Type General Regional Complications none Disposition Accompanied Patient To Recovery: No Disposition: Recovery Room Overlapping Procedure I was immediately available: during the entire case.
--- NOTE | 2019-08-16 10:54 | Operative Report ---
Post Operative Report Pre & Post Diagnosis Operation Date: 06/08/19 07:15 <No data on this case meets the specified criteria> Operation Date: 08/16/19 07:30 Pre-Op Diagnosis: Right knee osteoarthritis, obesity BMI 44.0 Post-Op Diagnosis: Right knee osteoarthritis, obesity BMI 44.0 I identified the patient and participated in the time-out.: Yes Procedure Operation Date: 06/08/19 07:15 <No data on this case meets the specified criteria> Operation Date: 08/16/19 07:30 Actual Procedures p Right Total Knee Arthroplasty(Right), application superficial wound VAC, increased difficulty obesity BMI 44.0- Cash March MD Surgeon Cash March MD Public Works Supervisor CARLOS ENRIQUE Meyer Estimated Blood Loss 5 Findings Consistent with Post-Op Diagnosis Specimens Bone cuts Drains 2 Hemovac Anesthesia Type General Regional Complications none Disposition Accompanied Patient To Recovery: No Disposition: Recovery Room Indications 68-year-old male progressive osteoarthritis in his right knee with severe tricompartmental OA subluxation the femur medially on the tibia with [id number] medial compartment advanced patellofemoral OA. Patient has successful left knee replacement in the past. Now presents for right knee replacement. Description of Procedure Patient taken to the operating room the size under attempted spinal anesthesia followed by general anesthesia with a adductor canal regional nerve block anesthesia. Patient was placed supine on the operating table. A pneumatic tourniquet was placed about the obese right upper thigh. The right lower extremity was prepped and draped in sterile fashion. Knee exam demonstrated flexion contracture 10 to 15 degrees with flexion to 115 degrees stiff knee with a obese leg and some edema chronically in the lower extremity old pretibial scar. The leg was elevated exsanguinated with an Esmarch bandage and pneumatic tourniquet was raised to 350 millimeters of mercury. Skin incised sharply in longitudinal fashion. Subcutaneous flaps elevated. Incision was made through the medial retinaculum extending up in the mid third of the quadriceps tendon and down to the medial tibial tubercle. Intra-articular findings demonstrated chronic ACL tear [id number] all 3 compartments varus knee osteophytes and chronic synovitis. The Million-2-1 triathlon total knee arthroplasty system was used. To expose the knee the infrapatellar fat pad was resected. The meniscal remnants and posterior cruciate ligament were resected. The anterior fat pad over the femur in the area of the anterior flange of the femoral component was resected. Lateral synovial bands release. The femur was exposed. An intramedullary drill hole was made into the canal. A guide carine was placed. Distal femoral cutting guide was adjusted to resect a 5 degree valgus cut with 10 millimeters distal femur resected. The knee was extended and a subperiosteal peel lateral release was performed around the patella. Patella width was measured and width was reproduced using a freehand cut technique and a 36 x 10 symmetrical patella component. The 3 drill holes were made and the excess lateral facet was beveled off to prevent any impingement. Attention was taken back to the femur which was exposed with retractors and the femoral sizing guide was pinned in position. The drill holes were placed in 3 of external rotation to match epicondylar axis. Femur sized for a 7 component. The 4-in-1 cutting block was placed and then the anterior posterior and chamfer cuts are made. The tibia was then subluxed. The external tibial cutting guide was just to make a perpendicular cut to the long axis of the tibia below the most deficient bone loss side. A lamina kick press setter was used and the flexion extension gaps were balanced. All posterior osteophytes removed. All meniscal remnants were resected. The tibia exposed, some drill holes were made in the sclerotic medial tibial plateau to enhance cement fixation and the trial tibial component size 7 was externally rotated in line with the tibial tubercle and pinned in position. The punch for stem was used. The notch cutting device was centered appropriately and the femoral notch cut was made. The femoral trial was inserted. The drill holes for the femoral pegs were made. Trial tibial inserts were placed and size 9 posterior stabilized high flex gave balanced ligaments through flexion and extension. Patella tracking was assessed. The patella tracked centrally. The trial components were then removed and the orthomix anesthetic cocktail was injected per protocol. The knee was then copiously irrigated with pulsatile lavage antibiotic solution. Final components were then cemented with Simplex cement. Final components were right Karthikeyan triathlon posterior stabilized size 7 femoral component, 7 primary tibial baseplate, 7 x 9 mm high flex posterior stabilized x-ray polyethylene tibial insert, S 36 x 10 mm X3 polyethylene symmetrical patella. While the cement cured the Betadine soak was used per protocol. After cement cured further pulsatile lavage irrigation performed and 2 Hemovac drains were brought out laterally. The quadriceps tendon and medial retinaculum were closed with figure of 8 #1 Vicryl sutures. The knee was taken through full range of motion and the repair was secure. The subcutaneous tissues were closed with 2-0 Vicryl sutures. Skin was closed with nelida. A superficial wound VAC was applied. Patient tolerated the procedure well. There was an increased level of difficulty due to his large size heavy leg obesity which increased length of surgical time 30 to 40 minutes. Edward Dick [] PA was my physician senior sales assistant who assisted in patient positioning prepping and draping,leg positioning ,soft tissue retraction and instrument management and participated in the closing and superficial wound VAC application and will participate in postoperative care of the patient. The patient tolerated the procedure well. I attest to the content of the Intraoperative Record and any orders documented therein. Any exceptions are noted below.
--- NOTE | 2019-08-16 11:12 | XRay Report ---
XR knee RT 1 or 2V routine CLINICAL HISTORY: Postoperative evaluation. COMPARISON: None FINDINGS: Alignment of the total right knee arthroplasty is anatomic. There is no periprosthetic fra cture or unexpected radiopaque foreign body. There are drains and skin nelida. IMPRESSION: Expected findings following total right knee arthroplasty. ACT 112: Negative or not required by law. Electronically signed by: Doc Camp M.D. 08/16/2019 11:11 AM
--- NOTE | 2019-08-16 11:43 | Anesthesiology Progress Note ---
Date of Service August 16, 2019 Anesthesia Post Procedure Vital Signs Vital Signs: Temp Pulse Pulse Resp BP Pulse Ox 08/16/19 11:15 37.0 C 80 12 125/54 L 95 08/16/19 11:05 87 18 137/69 95 08/16/19 10:55 93 H 12 127/71 96 08/16/19 10:45 91 H 12 138/67 96 08/16/19 10:35 36.2 C L 105 H 16 138/65 95 08/16/19 06:10 48 L 18 135/78 98 08/16/19 05:29 36.8 C 54 L 20 174/92 H 97 Pain Intensity Right Knee: Pain Intensity: 0 Transfer of Care Handoff Completed per policy Notes Mental Status: alert / awake / arousable and participated in evaluation Patient Amnestic to Procedure: Yes Nausea / Vomiting: adequately controlled Pain: adequately controlled Airway Patency, RR, SpO2: stable & adequate BP & HR: stable & adequate Hydration State: stable & adequate Anesthetic Complications: no major complications apparent and Pt Satisfied with anesthetic care
[2019-08-16] MEDS ORDERED: MAGNESIUM HYDROXIDE SUSP 30 ML UDC PO PRN (11:46)
[2019-08-16] MEDS ORDERED: OXYCODONE HCL IR 5 MG TAB (IMMEDIATE RELEASE) PO PRN (11:46)
[2019-08-16] MEDS ORDERED: NALOXONE HCL 0.4 MG/1 ML VIAL/CARP IV PRN (11:46)
[2019-08-16] MEDS ORDERED: bisacodyL 10 MG SUPP PR PRN (11:46)
[2019-08-16] MEDS ORDERED: HYDROmorphone INJ 0.5 MG/0.5 ML SYR IV PRN (11:46)
[2019-08-16] MEDS: SODIUM CHLORIDE 0.9% 1000ML 1,000 ML IV SCH ×2 (12:35→20:47)
[2019-08-16] MEDS: ACETAMINOPHEN 500 MG TAB PO SCH ×2 (14:01→20:53)
[2019-08-16] MEDS: CEFAZOLIN 2000MG 2,000 MG/15 ML SYR IV SCH ×2 (15:39→23:36)
--- NOTE | 2019-08-16 19:26 | Hospitalist Consultation ---
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 CKD stage 3-4 Receiving IVFs post-op -hold HCTZ and losartan for in AM until BMP resulted to see what ceramic capacitor processor doing -watch UOP -Avoid nephrotoxins -renally dose meds when appropriate -follow BMP (3) Hypertension: BPs mildly elevated -hold losartan and HCTZ as above -follow (4) Neuropathy: no meds for this (5) GERD (gastroesophageal reflux disease): -add on po pepcid 20mg po qhs (6) Hyperlipidemia: no meds for this (7) Sinus bradycardia: pt reports he is always in the 40s-50s for his resting heart rat, no h/o syncoee and had normal ECHO in 04/2019 with Cardiology preop clearnace avoid AV william blockers (8) DVT prophylaxis: Xarelto, SCDs Dispo-continued stay Hospitalist service will follow along History of Present Illness Reason for Consultation: Post-OP Medical Management Requesting Physician: Dr. March Attending Physician: Cash March MD History of Present Illness This patient is a 68 yo male with a h/o HTN, CKD stage III, KARLO on CPAP, GERD, OA> melanoma, hyperlipidemia, gastric bypass, and peripheral neuropathy, here with right TKA. Hospitalist service consulted for medical management. Preoperative medical clearance notes reviewed. Pt reports feeling pain in right thigh at site of tourniquet.He is urinating well, eating well. Does not want oxycodone as it makes him nauseated. He has had tramadol in the past. Also reports he had bad heartburn last night which resolved on its own this AM. He takes prn ranitidine at home but none since it was recalled. Last BM yesterday AM. Denies any chest pain or SOB. No h/o blood clots. Allergies Allergy/AdvReac Type Severity Reaction Status Date / Time No Known Allergies Allergy Verified 08/16/19 05:44 Home Medications Home Medications Medication Instructions Recorded Confirmed Type hydrochlorothiazide 25 mg PO QAM 05/16/19 08/16/19 History losartan 25 mg PO QAM 05/16/19 08/16/19 History Patient History Medical History (Updated 08/16/19 @ 19:33 by Melissa Porter MD) CKD (chronic kidney disease) stage 3, GFR 30-59 ml/min GERD (gastroesophageal reflux disease) Hx of cardiac murmur No significant valve issues per 04/2019 ECHO Hx of diabetes mellitus RESOLVED AFTER GASTRIC BYPASS 8 YRS AGO Hyperlipidemia Hypertension Osteoarthritis Peripheral neuropathy Sinus bradycardia Skin cancer Sleep apnea CPAP Syncopal episodes WHEN REMOVING KOKO WITH LEFT TKA Surgical History (Updated 08/16/19 @ 19:33 by Melissa Porter MD) History of ankle surgery RT ANKLE BONE CHIP REMOVED History of arthroscopy RT/LEFT KNEE History of cardiac cath 2 YEARS AGO (NO STENTS) History of cholecystectomy History of colonoscopy History of esophagogastroduodenoscopy (EGD) History of gastric bypass 8 YRS AGO History of repair of rotator cuff RT/LEFT (LEFT SIDE DONE X 2) History of tooth extraction History of total knee replacement LEFT Hx of hand surgery RT INDEX FINGER Status post total knee replacement, right Family History Other No significant family history Social History Preferred Language: [place] Citizen Communication Ability: Effective Technician Telecommunication Systems Required: No Beliefs That Will Affect Care: None marital status: Current Living Situation: Spouse Feels Safe at Home: Yes Safety Concerns: Feels Safe At This Time Smoking Status: Former smoker Tobacco Type: cigarettes ; Do You Dip or Chew Tobacco: No ; Smoking End Date: 1970 (SMOKED FO R 1 YEAR) ; Second Hand Exposure: No ; Tobacco Cessation Education Requested by Patient: No Hx Alcohol Use: No Hx Substance Use: No Review of Systems Review of Systems: All systems reviewed & are unremarkable except as noted in HPI & below Physical Exam Constitutional: WD/WN, vitals as above + obese Eyes: + anicteric sclerae ENMT: external ear and nose normal, oropharynx normal Neck: trachea midline, no thyromegaly Respiratory: normal respiratory effort, lungs clear to auscultation Cardiovascular: Rate/Rhythm: regular rhythm and + bradycardic Heart Sounds: no murmur Extremities: no edema Chest (Breasts): Chest: normal inspection of chest Gastrointestinal (Abdomen): normal bowel sounds, soft, nontender, no hepatosplenomegaly Musculoskeletal: Extremities: + extremities abnormal to inspection (RLE with CAMMIE wrap in place, drain with bloody drainage), no cyanosis and no clubbing Skin: no rashes, warm and dry Neurologic: moves all extremities and awake; no focal motor deficits Psychiatric: A+Ox3, euthymic affect Lymphatic: no lymphedema Results & Data Results & Data ([facility]) Vital Signs (Past 12 Hours) Vital Signs Temp Pulse Pulse Resp BP Pulse Ox 08/16/19 19:12 36.8 C 52 L 17 143/71 H 97 08/16/19 15:12 36.5 C 93 H 17 111/71 94 08/16/19 14:45 36.5 C 92 H 18 106/72 95 08/16/19 13:52 36.3 C L 103 H 15 102/68 96 08/16/19 12:38 36.3 C L 98 H 16 112/69 96 08/16/19 12:10 36.4 C L 70 16 103/67 95 08/16/19 11:40 36.6 C 90 14 136/76 96 08/16/19 11:15 37.0 C 80 12 125/54 L 95 08/16/19 11:05 87 18 137/69 95 08/16/19 10:55 93 H 12 127/71 96 08/16/19 10:45 91 H 12 138/67 96 08/16/19 10:35 36.2 C L 105 H 16 138/65 95 PG Care Time/CCT Total # of Minutes Spent Total Time Spent with Patient: Total time spent is greater than 50% in coordinat ion of care (as documented) at patient's floor/unit and/or counseling patient: Coding Level of Care Code 18117 Inpt Consult Level 3 Diagnoses Status post total knee replacement, right Z96.651 CKD (chronic kidney disease) stage 3, GFR 30-59 ml/min N18.3 Hypertension I10 Neuropathy G62.9 GERD (gastroesophageal reflux disease) K21.9 Hyperlipidemia E78.5 Sinus bradycardia R00.1 DVT prophylaxis Z29.9
[2019-08-16] MEDS: TRAMADOL HCL 50 MG TABLET PO PRN (20:48)
[2019-08-16] MEDS: SENNA 8.6 MG TAB PO SCH (20:49)
[2019-08-16] MEDS: FAMOTIDINE 20 MG TAB PO SCH (20:53)
[2019-08-16] MEDS: DOCUSATE SODIUM 100 MG CAP PO SCH (20:53)
[2019-08-16] MEDS ORDERED: OXYCODONE HCL 10 MG TABCR (OXYCONTIN) PO SCH (21:00)
[2019-08-17] MEDS: ACETAMINOPHEN 500 MG TAB PO SCH ×3 (05:21→21:31)
[2019-08-17 06:06] LABS: Hematocrit (blood only) 32.7 % (42-52); Hemoglobin 10.9 g/dL (14.0-18.0); Mean Corpuscular Hemoglobin 30.1 pg (25-34); Mean Corpuscular Hgb Conc 33.3 g/dL (32-36); Mean Corpuscular Volume 90.3 fL (80-100); Mean Platelet Volume 10.6 fL (7.4-10.4); Platelet Count 251 K/uL (130-400); RDW Coefficient of Variation 13.9 % (11.5-14.5); RDW Standard Deviation 45.8 fL (36.4-46.3); Red Blood Count 3.62 M/uL (4.7-6.1); White Blood Count 13.35 K/uL (4.8-10.8)
[2019-08-17 06:35] LABS: BUN Creatinine Ratio 9.5 (10-20); Calcium 7.8 mg/dl (8.5-10.1); Creatinine Clr Calc Pharmacy 58.8 ml/min; Est GFR (African American) 41.6; Est GFR (Non-African American) 35.9; Potassium 4.4 mmol/L (3.5-5.1)
--- NOTE | 2019-08-17 07:59 | Orthopedic Progress Note ---
Date of Service August 17, 2019 Assessment & Plan (1) Status post total knee replacement, right: POD #1, Right TKA PT/ OT DVT porph- Xarelto D/C planning- Home w HH As per medicine. Admission and Anticipated Discharge Date Admission Date: August 16, 2019 Subjective POD #1, Doing well. Denies SOB, CP, N/V. Pain controlled well. Wishes HH on D/C. Physical Exam Physical Exam: Right knee dressings c/d/i. Toes/ ankle mobile. No calf tenderness. A&Ox3. Results & Data ([facility]) Vital Signs (Past 12 Hours) Vital Signs Temp Pulse Resp BP Pulse Ox 08/17/19 07:46 36.6 C 58 L 18 109/67 97 08/17/19 03:24 36.5 C 65 18 118/76 96 08/16/19 23:34 36.5 C 86 16 118/73 96
[2019-08-17] MEDS ORDERED: hydroCHLOROthiazide 25 MG TAB PO SCH (09:00)
[2019-08-17] MEDS ORDERED: LOSARTAN POTASSIUM 25 MG TAB PO SCH (09:00)
[2019-08-17] MEDS: RIVAROXABAN 10 MG TABLET PO SCH (09:12)
[2019-08-17] MEDS: TRAMADOL HCL 50 MG TABLET PO PRN ×3 (09:12→21:32)
[2019-08-17] MEDS: MULTIVITAMIN TAB PO SCH (09:12)
[2019-08-17] MEDS: DOCUSATE SODIUM 100 MG CAP PO SCH ×2 (09:12→20:36)
[2019-08-17] MEDS ORDERED: DEXTROSE 50% 50 ML SYRINGE IV PRN (09:13)
[2019-08-17] MEDS ORDERED: GLUCOSE 10 TABS/TUBE PO PRN (09:13)
[2019-08-17] MEDS ORDERED: GLUCAGON FOR INJ 1 MG VIAL SQ PRN (09:13)
[2019-08-17] MEDS ORDERED: GLUCOSE 40% GEL 15 GM TUBE PO PRN (09:13)
[2019-08-17] MEDS ORDERED: CARBOHYDRATES FOR HYPOGLYCEMIA PO PRN (09:13)
[2019-08-17] MEDS: INSULIN ASPART 100 UNITS/ML 3 ML PEN SC SCH ×3 (13:34→21:28)
--- NOTE | 2019-08-17 14:13 | Hospitalist Progress Note ---
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 CKD stage 3-4 Received IVFs post-op and now taking adequate po Barber up slightly today to 1.87 BPs low normal -continue to hold HCTZ and losartan -watch UOP-normal -Avoid nephrotoxins -renally dose meds when appropriate -follow BMP (3) Hypertension: BPs now low normal, systolic 100 -continue to hold losartan and HCTZ as above -follow (4) Diabetes mellitus type 2 in obese: HgbA1C preop in 04/2019 was elevated at 6.9% Glucose here in 160s today -start accuchecks achs, SSI check A1C in AM (5) Neuropathy: no meds for this (6) GERD (gastroesophageal reflux disease): -continue on po pepcid 20mg po qhs (7) Hyperlipidemia: no meds for this (8) Sinus bradycardia: pt reports he is always in the 40s-50s for his resting heart rat, no h/o syncoee and had normal ECHO in 04/2019 with Cardiology preop clearnace avoid AV william blockers (9) DVT prophylaxis: Xarelto, SCDs Dispo-continued stay Hospitalist service will follow along Admission and Anticipated Discharge Date Admission Date: August 16, 2019 Subjective No acute issues overnight. Pain in RLE now completely resolved. Denies any chest pain or SOB, no nausea, no abd pain. No BM yet but feels like it's coming soon. Discussed his diabetes-he reports at home if he is active in the mornings, sometimes his glucose will drop low into the 40-50s even without taking medication for DM. Review of Systems Review of Systems: All systems reviewed & are unremarkable except as noted in HPI & below Physical Exam Constitutional: WD/WN, vitals as above + obese Eyes: + anicteric sclerae Neck: trachea midline, no thyromegaly Respiratory: normal respiratory effort, lungs clear to auscultation Cardiovascular: Rate/Rhythm: regular rhythm and + bradycardic Heart Sounds: no murmur Extremities: no edema Chest (Breasts): Chest: normal inspection of chest Gastrointestinal (Abdomen): normal bowel sounds, soft, nontender, no hepatosplenomegaly Musculoskeletal: Extremities: + extremities abnormal to inspection (RLE with CAMMIE wrap in place, drain with bloody drainage), no cyanosis and no clubbing Skin: no rashes, warm and dry Neurologic: moves all extremities and awake; no focal motor deficits Psychiatric: A+Ox3, euthymic affect Lymphatic: no lymphedema Results & Data Results & Data ([facility]) Vital Signs (Past 12 Hours) Vital Signs Temp Pulse Resp BP Pulse Ox 08/17/19 11:41 36.7 C 75 18 96/59 L 97 08/17/19 07:46 36.6 C 58 L 18 109/67 97 08/17/19 03:24 36.5 C 65 18 118/76 96 Laboratory Results 08/17/19 08/17/19 08/17/19 Range/Units 12:22 05:28 05:28 WBC 13.35 H (4.8-10.8) K/uL RBC 3.62 L (4.7-6.1) M/uL Hgb 10.9 L (14.0-18.0) g/dL Hct 32.7 L (42-52) % MCV 90.3 (80-100) fL MCH 30.1 (25-34) pg MCHC 33.3 (32-36) g/dL RDW Std Deviation 45.8 (36.4-46.3) fL RDW Coeff of Eliud 13.9 (11.5-14.5) % Plt Count 251 (130-400) K/uL MPV 10.6 H (7.4-10.4) fL Sodium 140 (136-145) mmol/L Potassium 4.4 (3.5-5.1) mmol/L Chloride 108 H (98-107) mmol/L Carbon Dioxide 25 (21-32) mmol/L Anion Gap 7.0 (3-11) BUN 18 (7-18) mg/dl Creatinine 1.87 H (0.6-1.4) mg/dl Est Cr Clr Drug Dosing 58.8 ml/min Est GFR ( Amer) 41.6 Est GFR (Non-Af Amer) 35.9 BUN/Creatinine Ratio 9.5 L (10-20) Glucose 167 H (70-99) mg/dl POC Glucose 139 H (70-99) mg/dl Calcium 7.8 L (8.5-10.1) mg/dl PG Care Time/CCT Total # of Minutes Spent Total Time Spent with Patient: Total time spent is greater than 50% in coordination of care (as documented) at patient's floor/unit and/or counseling patient: Coding Level of Care Code 06920 Subseq Hosp Care Lvl 2 Diagnoses Status post total knee replacement, right Z96.651 CKD (chronic kidney disease) stage 3, GFR 30-59 ml/min N18.3 Hypertension I10 Diabetes mellitus type 2 in obese E11.69; E66.9 Neuropathy G62.9 GERD (gastroesophageal reflux disease) K21.9 Hyperlipidemia E78.5 Sinus bradycardia R00.1 DVT prophylaxis Z29.9
[2019-08-17] MEDS: SENNA 8.6 MG TAB PO SCH (20:36)
[2019-08-17] MEDS: FAMOTIDINE 20 MG TAB PO SCH (20:36)
[2019-08-18 05:56] LABS: Hematocrit (blood only) 30.3 % (42-52); Mean Corpuscular Hemoglobin 30.1 pg (25-34); Mean Corpuscular Volume 91.3 fL (80-100); Mean Platelet Volume 10.4 fL (7.4-10.4); Platelet Count 214 K/uL (130-400); RDW Coefficient of Variation 14.2 % (11.5-14.5); RDW Standard Deviation 47.2 fL (36.4-46.3); Red Blood Count 3.32 M/uL (4.7-6.1); White Blood Count 8.77 K/uL (4.8-10.8)
[2019-08-18] MEDS: ACETAMINOPHEN 500 MG TAB PO SCH ×2 (06:08→14:08)
[2019-08-18 06:29] LABS: BUN Creatinine Ratio 13.5 (10-20); Calcium 7.8 mg/dl (8.5-10.1); Creatinine Clr Calc Pharmacy 55.8 ml/min; Est GFR (Non-African American) 33.7; Potassium 4.5 mmol/L (3.5-5.1)
[2019-08-18 07:05] LABS: Estimated Average Glucose 148 mg/dl; Hemoglobin A1C 6.8 % (4.5-5.6)
[2019-08-18] MEDS: TRAMADOL HCL 50 MG TABLET PO PRN (07:06)
[2019-08-18] MEDS: INSULIN ASPART 100 UNITS/ML 3 ML PEN SC SCH ×2 (08:21→14:51)
[2019-08-18] MEDS: DOCUSATE SODIUM 100 MG CAP PO SCH (08:22)
[2019-08-18] MEDS: RIVAROXABAN 10 MG TABLET PO SCH (08:22)
[2019-08-18] MEDS: MULTIVITAMIN TAB PO SCH (08:22)
--- NOTE | 2019-08-18 10:55 | Orthopedic Progress Note ---
Date of Service August 18, 2019 Assessment & Plan (1) Status post total knee replacement, right: POD #2, Right TKA PT/ OT DVT porph- Xarelto D/C planning- Home w HH As per medicine. Admission and Anticipated Discharge Date Admission Date: August 16, 2019 Subjective POD #2, Doing well. Denies SOB, CP, N/V. Pain controlled well with tramadol. Wishes HH on D/C. Physical Exam Constitutional: WD/WN, vitals as above Musculoskeletal: Knee: + surgical incision (right knee: Prevena in place and functioning.); knee normal to inspection, no skin erythema, no ecchymosis, no surgical drain present (hemovac has been removed from right knee) and no crepitation with knee ROM Neurologic: normal touch/pain/proprioception Psychiatric: A+Ox3, euthymic affect Speech: normal rate/rhythm/volume of speech Results & Data ([facility]) Vital Signs (Past 12 Hours) Vital Signs Temp Pulse Resp BP Pulse Ox 08/18/19 10:48 36.3 C L 60 18 123/84 99 08/18/19 06:59 36.3 C L 60 18 123/84 99 08/17/19 23:00 36.7 C 52 L 12 111/67 96
[2019-08-18] MEDS ORDERED: TRAMADOL HCL 50 MG TABLET PO ONE (13:00)
--- NOTE | 2019-09-03 21:54 | Discharge Summary (DS) ---
HISTORY OF PRESENT ILLNESS: This is a 68-year-old male patient of Dr. March'viridiana complaining of chronic right knee pain, longstanding, progressively getting worse. The patient failed conservative treatment and elected to proceed with a right total knee arthroplasty. PAST MEDICAL HISTORY: Hypertension, sleep apnea, peripheral neuropathy, osteoarthritis, sciatica, acid reflux, obesity and a history of melanoma cancer. POSTOPERATIVE COURSE: The patient underwent a right total knee arthroplasty on 08/16/2019. He was followed closely with medical consultation, DVT prophylaxis in the form of Xarelto, physical therapy and pain control. The patient did well postoperatively. He was discharged home on postoperative day #2. PHYSICAL EXAMINATION: On discharge, right knee Prevena wound VAC was clean, dry and intact. It was holding suction well. Toes and ankle were mobile. There is no calf tenderness. Negative Homans sign. Neurologically and vascularly intact in his right lower extremity. DIAGNOSES: Status post right total knee arthroplasty with application of superficial wound VAC, hypertension, sleep apnea, peripheral neuropathy, osteoarthritis, sciatica, acid reflux, obesity and a history of melanoma cancer. PLAN: The patient was discharged home with home health services. He will continue his preadmission medications with the addition of Xarelto and pain medications. Keep the Prevena wound VAC on for 1 week and follow up as an outpatient.
== END 2019-08-18 14:52 | disposition home health service (06) | DRG 470 ==
LOC: ASU 05:07 → 3E 11:37